=== PATIENT | female | born 1990 | race African-American/Black ===

== ENCOUNTER 2016-12-06 18:34 | Emergency (ER) | payer SELFPAY ==
--- NOTE | 2016-12-06 18:35 | NUR ---
no answer out in ER lobby
--- NOTE | 2016-12-06 18:43 | NUR ---
still no answer out in lobby
--- NOTE | 2016-12-06 18:43 | NUR ---
PATIENT LEFT WITHOUT BEING SEEN BY DR. Wiggins. NO FURTHER CARE PROVIDED FOR PATIENT.
== END 2016-12-06 18:43 | disposition left against medical advice (07) ==
LOC: MED 18:34
DX: Z53.21 Procedure and treatment not carried out due to patient leaving prior to being seen by health care provider (principal)

== ENCOUNTER 2016-12-09 09:45 | Emergency (ER) | payer SELFPAY ==
[~2016-12-09] VITALS: Ht 160 cm; Wt 95.0 kg
[2016-12-09 10:04] VITALS: BP 106/63
--- NOTE | 2016-12-09 10:10 | NUR ---
Blake valdovinos in [facility] - 12/09/16 at 1028 by [facility] PT AMBULATED TO BED 6.
--- NOTE | 2016-12-09 10:15 | NUR ---
PT AMBULATED TO BED 6.
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
[2016-12-09] MEDS ORDERED: ONDANSETRON 4 MG ODT PO ONE (10:45)
[2016-12-09] MEDS ORDERED: CYCLOBENZAPRINE 10 MG TAB PO ONE (10:45)
[2016-12-09] MEDS ORDERED: ACETAMINOPHEN EXTRA STRENGTH 500 MG TAB PO ONE (10:45)
[2016-12-09] MEDS ORDERED: traMADol 50 MG TAB PO ONE (10:45)
[2016-12-09] MEDS ORDERED: KETOROLAC 60 MG/2 ML VIAL IM ONE (10:45)
[2016-12-09 12:20] VITALS: BP 122/65
--- NOTE | 2016-12-09 12:20 | NUR ---
Patient discharged with v/s stable. Written and verbal after care instructions given and explained. Patient verbalized understanding. Ambulatory with steady gait. All questions addressed prior to discharge. Advised to follow up with PMD.
== END 2016-12-09 12:20 | disposition home or self-care (01) ==
LOC: MED 09:45
DX: S33.5XXA Sprain of ligaments of lumbar spine, initial encounter (principal); S09.90XA Unspecified injury of head, initial encounter; J06.9 Acute upper respiratory infection, unspecified; J45.909 Unspecified asthma, uncomplicated; Z98.890 Other specified postprocedural states; V89.2XXA Person injured in unspecified motor-vehicle accident, traffic, initial encounter; Y93.89 Activity, other specified; Y92.89 Other specified places as the place of occurrence of the external cause; Y99.8 Other external cause status
CPT/HCPCS: 96372; 99284; J1885; S0119

== ENCOUNTER 2018-02-05 14:24 | Emergency (ER) | payer MEDICARE ==
[~2018-02-05] VITALS: Ht 157.5 cm; Wt 79.8 kg
[2018-02-05 14:42] VITALS: BP 96/53
--- NOTE | 2018-02-05 14:46 | NUR ---
pt stable to wait in lobby, pt advised to inform staff for any chnages in conditon.
--- NOTE | 2018-02-05 15:25 | NUR ---
PATIENT TO BED 11 AT THIS TIME.
--- NOTE | 2018-02-05 15:30 | NUR ---
PATIENT PRESENTS TO ED WITH COMPLAINTS OF POSSIBLE WOUND INFECTION. PATIENT STATES SHE HAD GALLBLADDER SURGERY DONE HERE AND SHE BELIEVES HER WOUNDS ARE INFECTED. UPON INSPECTION WOUNDS APPEARED HEALED WITH NO PRESSENCE OF DRAINAGE. AROUND WOUNDS PATIENT DOES APPEAR TO HAVE A RASH FORMATION POSSIBLY A REACTION TO ADHESIVE USED ON DRESSINGS. DENIES N/V/D; SKIN IS PINK/WARM/DRY; AAOX4 WITH EVEN AND STEADY GAIT; PT DENIES ANY FEVER, CP, SOB, OR COUGH AT THIS TIME; PATIENT STATES PAIN OF 0/10 AT THIS TIME; VSS; PATIENT POSITIONED FOR COMFORT; HOB ELEVATED; BEDRAILS UP X1; BED DOWN. ER MD MADE AWARE OF PT STATUS.
[2018-02-05] MEDS ORDERED: hydrOXYzine HCL 25 MG TAB PO ONE (16:00)
[2018-02-05] MEDS ORDERED: diphenhydrAMINE 50 MG/ML VIAL IM ONE (16:00)
[2018-02-05] MEDS ORDERED: DEXAMETHASONE 10 MG/ML VIAL IM ONE (16:00)
--- NOTE | 2018-02-05 16:50 | NUR ---
Patient discharged with v/s stable. Written and verbal after care instructions given and explained. Patient alert, oriented and verbalized understanding of instructions. Ambulatory with steady gait. All questions addressed prior to discharge. ID band removed. Patient advised to follow up with PMD. Rx of ATARAX, KENALOG CREME given. Patient educated on indication of medication including possible reaction and side effects. Opportunity to ask questions provided and answered.
[2018-02-05 16:54] VITALS: BP 96/53
== END 2018-02-05 16:50 | disposition home or self-care (01) ==
LOC: MED 14:24
DX: Z48.01 Encounter for change or removal of surgical wound dressing (principal); L29.9 Pruritus, unspecified; J45.909 Unspecified asthma, uncomplicated; Z98.890 Other specified postprocedural states
CPT/HCPCS: 81002; 81025; 96372; 99284; J1100; J1200

== ENCOUNTER 2018-07-08 09:45 | Emergency (ER) | payer MEDICARE ==
[~2018-07-08] VITALS: Ht 157.5 cm; Wt 86.2 kg
--- NOTE | 2018-07-08 10:04 | NUR ---
GOWN PROVIDED TO PT TO CHANGE INTO.
[2018-07-08 10:07] VITALS: BP 102/59
--- NOTE | 2018-07-08 10:15 | NUR ---
28 YO F BIB SELF, AMBULATORY W/STEADY GATE. PER PATIENT SHE DID THE SPLITS YESTERDAY AND FEELS LIKE SHE PULLED MUSCLE. BEDRAILS UP X1. BED IN LOWER LOCKED POSITION. ER MD MADE AWARE OF PT STATUS. WILL CONTINUE TO MONITOR HX: CHOLECYSTECTOMY
--- NOTE | 2018-07-08 10:17 | NUR ---
ASKED PT TO CHANGE. PT STATES PAIN IS 10 OUT 10 IN RECTUM AND LEG AREA. PT STATES TO DOING THE SPLITS YESTERDAY AND HAS HAD PAIN EVER SINCE.
--- NOTE | 2018-07-08 11:07 | NUR ---
ER MD DR. RIDER AT BEDSIDE WITH FEMALE BUILDING CLEANER.
[2018-07-08] MEDS ORDERED: KETOROLAC 60 MG/2 ML VIAL IM ONE (11:15)
[2018-07-08 12:20] VITALS: BP 110/62
--- NOTE | 2018-07-08 12:20 | NUR ---
Patient discharged with v/s stable. Written and verbal after care instructions given and explained. Patient alert, oriented and verbalized understanding of instructions. Ambulatory with steady gait. All questions addressed prior to discharge. ID band removed. Patient advised to follow up with PMD. Rx of NAPROSYN 500MG, ANUSOL HC 25MG given. Patient educated on indication of medication including possible reaction and side effects. Opportunity to ask questions provided and answered.
== END 2018-07-08 12:20 | disposition home or self-care (01) ==
LOC: MED 09:45
DX: M54.32 Sciatica, left side (principal); K64.4 Residual hemorrhoidal skin tags; J45.909 Unspecified asthma, uncomplicated
CPT/HCPCS: 96372; 99283; J1885

== ENCOUNTER 2018-10-22 11:56 | Emergency (ER) | payer BC, MEDICARE ==
[~2018-10-22] VITALS: Ht 157.5 cm; Wt 84.4 kg
[2018-10-22 12:00] VITALS: BP 104/50
--- NOTE | 2018-10-22 12:15 | NUR ---
pt states, on chair in er # 01 room,a nail punctures/cut rt palm area last night-more than 12 hours ago.not utd on td.awaits er md evaluations/assessments.noted slight swelling/redness/pains
--- NOTE | 2018-10-22 12:25 | NUR ---
steffany singh at bedside for evaluations/assessments.jeff huff.awaits reevaluations.
--- NOTE | 2018-10-22 12:45 | NUR ---
tdap given im.pt tolerated procedures with no incidents.portable xrays in progress.awaits reevaluations.jeff huff.
--- NOTE | 2018-10-22 13:00 | NUR ---
Patient appears to be resting in bed. Vital Signs within normal limits. Respirations even and unlabored.
[2018-10-22] MEDS ORDERED: IBUPROFEN 600 MG TAB PO ONE (13:45)
--- NOTE | 2018-10-22 13:53 | NUR ---
steffany whitt at bedside for reevaluations.jeff huff.pt using own smartphone.awaits reevaluations.
--- NOTE | 2018-10-22 14:05 | NUR ---
pt tolerated procedures with no incidents.upon er md reevaluations pt d/c'ed with rx's,instructions and to follow up with pmd/clinic for checkup further evaluations.ambulates on her own and states she understands instructions and will comply,.return to nearest appropriate medical facility if conditions worsens/emergencies.jeff huff.
[2018-10-22 14:19] VITALS: BP 122/73
== END 2018-10-22 14:05 | disposition home or self-care (01) ==
LOC: MED 11:56
DX: M79.641 Pain in right hand (principal); J45.909 Unspecified asthma, uncomplicated
CPT/HCPCS: 73120; 90471; 90715; 99283; Q0092

== ENCOUNTER 2019-03-12 10:53 | Emergency (ER) | payer BC ==
[~2019-03-12] VITALS: Ht 157.5 cm; Wt 82.2 kg
[2019-03-12 10:57] VITALS: BP 116/74
--- NOTE | 2019-03-12 11:16 | NUR ---
28F C/O PRURITIC RASH BEHIND BOTH KNEECAPS THAT SEEM TO BE SPREADING X2 DAYS, DIFFICULTY BREATHING X1 WEEK, AND LOWER BACK PAIN X4 WEEK. PT STATES SHE RAN OUT OF ASTHMA MEDICATIONS, HAS BEEN HAVING DRY COUGH. LBP STARTED 4 DAYS AGO, AFTER PATIENT WAS PLAYING WITH HER KIDS AND "PULLED A MUSCLE" IN THE BACK. DENIES FEVER, CHILLS, N/V/D. MEDHX:ASTHMA RX:VITAMINS
--- NOTE | 2019-03-12 11:22 | NUR ---
DR. HORTON EVALUATING PATIENT AT BEDSIDE
[2019-03-12] MEDS ORDERED: KETOROLAC 60 MG/2 ML VIAL IM ONE (11:30)
[2019-03-12 11:45] VITALS: BP 116/74
--- NOTE | 2019-03-12 11:45 | NUR ---
Patient discharged with v/s stable. Written and verbal after care instructions given and explained. Patient alert, oriented and verbalized understanding of instructions. Ambulatory with steady gait. All questions addressed prior to discharge. ID band removed. Patient advised to follow up with PMD. Rx of MOTRIN, PREDNISONE, ALBUTEROL, AND BENADRYL given. Patient educated on indication of medication including possible reaction and side effects. Opportunity to ask questions provided and answered.
== END 2019-03-12 11:45 | disposition home or self-care (01) ==
LOC: MED 10:53
DX: R21 Rash and other nonspecific skin eruption (principal); M54.9 Dorsalgia, unspecified; J45.909 Unspecified asthma, uncomplicated; Z90.49 Acquired absence of other specified parts of digestive tract; Z98.890 Other specified postprocedural states
CPT/HCPCS: 81002; 81025; 96372; 99283; J1885

== ENCOUNTER 2019-05-03 08:43 | Emergency (ER) | payer BC ==
[~2019-05-03] VITALS: Ht 157.5 cm; Wt 79.4 kg
[2019-05-03 08:51] VITALS: BP 107/68
--- NOTE | 2019-05-03 09:05 | NUR ---
28F C/O EPIGASTRIC PAIN 8/10 ACCOMPANIED BY N/V X 3 DAYS AND A PAINFUL "BUMP" NEAR HER RECTUM X 1 WEEK. HX HEMORRHOIDS, HAS NOT PAID ATTENTION IF ANY BLOOD IN STOOL. PT STATES SHE IS LACTOSE INTOLERANT AND ATE ICE CREAM YESTERDAY SO SHE IS NOT SURE IF THATS WHATS CAUSING THE ABD PAIN. PAIN IS CONSTANT AND "ANNOYING". STATES CONSTIPATION YESTERDAY AND SUBJECTIVE FEVER THIS MORNING. NORMOACTIVE BS. MILD TENDERNESS TO EPIGASTRIUM. NAD. HX: ASTHMA RX: ALBURETOL
--- NOTE | 2019-05-03 09:41 | NUR ---
BLANE BEAN AT BEDSIDE FOR RECTAL EXAM.
[2019-05-03] MEDS ORDERED: KETOROLAC 60 MG/2 ML VIAL IM ONE (11:05)
[2019-05-03 11:16] VITALS: BP 107/68
--- NOTE | 2019-05-03 11:16 | NUR ---
Patient discharged with v/s stable. Written and verbal after care instructions given and explained. Patient alert, oriented and verbalized understanding of instructions. Ambulatory with steady gait. All questions addressed prior to discharge. ID band removed. Patient advised to follow up with PMD. Rx of KEFLEX, BACTRIM, COLACE, HYDROCORTISONE RECTAL SUPPOSITORY given. Patient educated on indication of medication including possible reaction and side effects. Opportunity to ask questions provided and answered.
== END 2019-05-03 11:16 | disposition home or self-care (01) ==
LOC: MED 08:43
DX: K64.9 Unspecified hemorrhoids (principal); J45.909 Unspecified asthma, uncomplicated; K59.00 Constipation, unspecified
CPT/HCPCS: 74018; 96372; 99283; J1885

== ENCOUNTER 2019-07-05 13:51 | Emergency (ER) | payer MEDICAID ==
[~2019-07-05] VITALS: Ht 157.5 cm; Wt 74.8 kg
[2019-07-05 14:43] VITALS: BP 114/62
--- NOTE | 2019-07-05 15:22 | NUR ---
Patient discharged with v/s stable. Written and verbal after care instructions given and explained. Patient alert, oriented and verbalized understanding of instructions. Ambulatory with steady gait. All questions addressed prior to discharge. ID band removed. Patient advised to follow up with PMD. Rx of ALBUTEROL, PREDNISONE, PROMETHAZINE, IBUPROFEN given. Patient educated on indication of medication including possible reaction and side effects. Opportunity to ask questions provided and answered.
--- NOTE | 2019-07-05 15:22 | NUR ---
29 Y/O F WITH C/O COUGH, FEVER, CONGESTION. PT TOOK COLD MEDICINE AT HOME, HASN'T RELIEVED SYMPMS.
[2019-07-05 15:28] VITALS: BP 114/72
== END 2019-07-05 15:22 | disposition home or self-care (01) ==
LOC: MED 13:51
DX: J06.9 Acute upper respiratory infection, unspecified (principal); J45.909 Unspecified asthma, uncomplicated
CPT/HCPCS: 99283

== ENCOUNTER 2019-08-05 10:30 | Emergency (ER) | payer MEDICAID, BC ==
[~2019-08-05] VITALS: Ht 165.1 cm; Wt 77.1 kg
[2019-08-05 10:38] VITALS: BP 115/57
--- NOTE | 2019-08-05 10:49 | NUR ---
PT PLACED IN BED 2.
--- NOTE | 2019-08-05 10:50 | NUR ---
ABSCESS TO RECTAL AREA X 1 MONTH, GIVEN ABX, NO RELIEF. LOWER BACK X 3 WEEKS DENIES INJURY. GENERALIZED ABD PAIN X 2 DAYS.
[2019-08-05] MEDS ORDERED: LIDOCAINE MPF 1% 5 ML ONE (12:45)
[2019-08-05] MEDS ORDERED: cefTRIAXone 1,000 MG VIAL ONE (12:45)
[2019-08-05] MEDS: cefTRIAXone 1,000 MG in LIDOCAINE MPF 1% 2.1 ML IM ONE (12:52)
[2019-08-05] MEDS: AZITHROMYCIN 250 MG TAB PO ONE (12:55)
[2019-08-05 13:39] VITALS: BP 115/57
[2019-08-07 06:07] LABS: CHLAMYDIA TRACHOMATIS AMP DNA Negative (Negative)
== END 2019-08-05 13:39 | disposition home or self-care (01) ==
LOC: MED 10:30
DX: N76.0 Acute vaginitis (principal); J45.909 Unspecified asthma, uncomplicated
CPT/HCPCS: 36415; 87210; 87491; 96372; 99283; J0696; J2001

== ENCOUNTER 2019-10-18 01:21 | Emergency (ER) | payer BC, MEDICAID ==
[~2019-10-18] VITALS: Ht 154.9 cm; Wt 78.0 kg
[2019-10-18 01:25] VITALS: BP 130/73
--- NOTE | 2019-10-18 01:29 | NUR ---
PT AMBULATED TO ER BED3
--- NOTE | 2019-10-18 01:36 | NUR ---
29 YO FEMALE CO ADULT ASTHMA SINCE TODAY. PT HAS NO WHEEZING. O2 100% ON ROOM AIR.
[2019-10-18] MEDS ORDERED: KETOROLAC 30 MG/ML VIAL IM ONE (01:40)
[2019-10-18 01:59] VITALS: BP 128/72
--- NOTE | 2019-10-18 01:59 | NUR ---
Patient discharged with v/s stable. Written and verbal after care instructions given and explained. Patient alert, oriented and verbalized understanding of instructions. Ambulatory with by parent. All questions addressed prior to discharge. ID band removed. Patient advised to follow up with PMD. Rx of ALBUTEROL, IBUPROFEN given. Patient educated on indication of medication including possible reaction and side effects. Opportunity to ask questions provided and answered.
== END 2019-10-18 01:56 | disposition home or self-care (01) ==
LOC: MED 01:21
DX: S39.012A Strain of muscle, fascia and tendon of lower back, initial encounter (principal); J45.909 Unspecified asthma, uncomplicated; R51 Headache; W19.XXXA Unspecified fall, initial encounter; Y93.89 Activity, other specified; Y92.89 Other specified places as the place of occurrence of the external cause; Y99.8 Other external cause status
CPT/HCPCS: 96372; 99283; J1885

== ENCOUNTER 2019-11-17 21:48 | Emergency (ER) | payer BC ==
[~2019-11-17] VITALS: Ht 157.5 cm; Wt 81.6 kg
--- NOTE | 2019-11-17 21:48 | NUR ---
PT CARRIED TO ER BED 05 WITH ASSISTANCE FROM DB
[2019-11-17 21:52] VITALS: BP 155/91
[2019-11-17] MEDS ORDERED: NACL 0.9% 500 ML IV ONE (22:10)
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
[2019-11-17] MEDS ORDERED: MAG SULF 2000 MG/WATER PREMIX 50 ML IV ONE (22:20)
[2019-11-17] MEDS ORDERED: PANTOPRAZOLE 40 MG INJ VIAL IVP ONE (22:20)
[2019-11-17] MEDS ORDERED: CYANOCOBALAMIN 1000 MCG/ML VIAL IM ONE (22:35)
--- NOTE | 2019-11-17 23:21 | NUR ---
PT ABLE TO SWALLOW WATER WITHOUT DIFFICULTY. DR. DE LA CRUZ AWARE.
[2019-11-17] MEDS ORDERED: KETOROLAC 30 MG/ML VIAL IVP ONE (23:30)
[2019-11-17 23:52] VITALS: BP 113/63
--- NOTE | 2019-11-17 23:54 | NUR ---
Patient discharged with v/s stable. Written and verbal after care instructions given and explained. Patient alert, oriented and verbalized understanding of instructions. Ambulatory with steady gait. All questions addressed prior to discharge. ID band removed. Patient advised to follow up with PMD. Rx prtonix and tylenol given. Patient educated on indication of medication including possible reaction and side effects. Opportunity to ask questions provided and answered. Pt walk on steady gait. No c/o CP , SOB, dizziness or any difficulty in swallowing. Pt d/c.
--- NOTE | 2019-11-18 15:39 | NUR ---
LATE ENTRY- IV MAGNESIUM SULFATE DISCONTINUED AT 2354.
== END 2019-11-17 23:54 | disposition home or self-care (01) ==
LOC: MED 21:48
DX: T17.928A Food in respiratory tract, part unspecified causing other injury, initial encounter (principal); R13.10 Dysphagia, unspecified; J45.909 Unspecified asthma, uncomplicated; X58.XXXA Exposure to other specified factors, initial encounter; Y93.89 Activity, other specified; Y92.89 Other specified places as the place of occurrence of the external cause; Y99.8 Other external cause status
CPT/HCPCS: 96365; 96375; 99284; C9113; J1885; J3420; J3475; J7030

== ENCOUNTER 2019-12-23 00:48 | Emergency (ER) | payer MEDICAID, BC ==
[~2019-12-23] VITALS: Ht 157.5 cm; Wt 79.8 kg
[2019-12-23 00:59] VITALS: BP 103/69
--- NOTE | 2019-12-23 01:05 | NUR ---
PT AMBULATED TO BED 7 WITH STEADY GAIT
[2019-12-23] MEDS ORDERED: DICYCLOMINE HCL LIQUID 20 MG, ALUMINUM HYD/MAG/SIMETHICONE 30 ML, LIDOCAINE VISCOUS 2% ... PO ONE ×3 (01:10)
[2019-12-23] MEDS ORDERED: PANTOPRAZOLE 40 MG TABEC PO ONE (01:10)
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
[2019-12-23] MEDS ORDERED: LIDOCAINE VISCOUS 2% 20 ML UDC ONE (01:16)
[2019-12-23] MEDS ORDERED: DICYCLOMINE HCL LIQUID 10 MG/5 ML UDC ONE (01:17)
[2019-12-23] MEDS ORDERED: ALUMINUM HYD/MAG/SIMETHICONE 30 ML UDC ONE (01:17)
--- NOTE | 2019-12-23 01:54 | NUR ---
PT REPORTS DECREASE IN PAIN, NOW 6/10 POST MEDICATION
[2019-12-23 02:00] VITALS: BP 103/69
--- NOTE | 2019-12-23 02:00 | NUR ---
Patient discharged with v/s stable. Written and verbal after care instructions given and explained. Patient alert, oriented and verbalized understanding of instructions. Ambulatory with steady gait. All questions addressed prior to discharge. ID band removed. Patient advised to follow up with PMD. Rx of PROTONIX given. Patient educated on indication of medication including possible reaction and side effects. Opportunity to ask questions provided and answered.
== END 2019-12-23 02:00 | disposition home or self-care (01) ==
LOC: MED 00:48
DX: K21.9 Gastro-esophageal reflux disease without esophagitis (principal); J45.909 Unspecified asthma, uncomplicated; Z98.890 Other specified postprocedural states
CPT/HCPCS: 99283

== ENCOUNTER 2020-01-10 01:12 | Emergency (ER) | payer BC, MEDICAID ==
[~2020-01-10] VITALS: Ht 154.9 cm; Wt 77.1 kg
[2020-01-10 01:26] VITALS: BP 113/70
--- NOTE | 2020-01-10 01:40 | NUR ---
PT TAKEN TO BED 11
[2020-01-10] MEDS ORDERED: DICYCLOMINE HCL LIQUID 20 MG, ALUMINUM HYD/MAG/SIMETHICONE 30 ML, LIDOCAINE VISCOUS 2% ... PO ONE ×3 (01:45)
[2020-01-10] MEDS ORDERED: DICYCLOMINE HCL LIQUID 10 MG/5 ML UDC ONE (01:48)
[2020-01-10] MEDS ORDERED: ALUMINUM HYD/MAG/SIMETHICONE 30 ML UDC ONE (01:48)
[2020-01-10] MEDS ORDERED: LIDOCAINE VISCOUS 2% 20 ML UDC ONE (01:48)
--- NOTE | 2020-01-10 01:48 | NUR ---
Dr. Herndon examining patient.
--- NOTE | 2020-01-10 01:56 | NUR ---
29F PT PRESENTS TO ED WITH C/O LLQ, RLQ ABDOMINAL PAIN THAT IS NON RADIATING. PT REPORTS INCREASED ACIDITY IN STOMACH AND REPORTS APPETITE CHANGES. PT NOT ABLE TO HOLD DOWN FOOD WITHOUT VOMITING. ERMD MADE AWARE. BOWEL SOUNDS NORMOACTIVE. ABDOMEN SOFT AND NONTENDER. DENIES HEMATOCHEZIA. DENIES DYSURIA. PMHX: GI SURGERY RX: DENIES NKA
[2020-01-10 01:58] VITALS: BP 113/70
--- NOTE | 2020-01-10 02:01 | NUR ---
PT MEDICATED WITH GI COCKTAIL
--- NOTE | 2020-01-10 02:11 | NUR ---
Patient discharged with v/s stable. Written and verbal after care instructions given and explained. Patient alert, oriented and verbalized understanding of instructions. Ambulatory with steady gait. All questions addressed prior to discharge. ID band removed. Patient advised to follow up with PMD. Rx of MOTRIN AND PRILOSEC given. Patient educated on indication of medication including possible reaction and side effects. Opportunity to ask questions provided and answered.
== END 2020-01-10 02:11 | disposition home or self-care (01) ==
LOC: MED 01:12
DX: K21.9 Gastro-esophageal reflux disease without esophagitis (principal); J45.909 Unspecified asthma, uncomplicated; Z90.49 Acquired absence of other specified parts of digestive tract
CPT/HCPCS: 81002; 81025; 99283

== ENCOUNTER 2020-03-19 01:16 | Emergency (ER) | payer BC ==
[~2020-03-19] VITALS: Ht 154.9 cm; Wt 79.4 kg
[2020-03-19 01:45] VITALS: BP 106/65
--- NOTE | 2020-03-19 01:49 | NUR ---
PT TO CHC WITH STEADY GAIT.
--- NOTE | 2020-03-19 01:57 | NUR ---
Dr. Lazar examining patient.
[2020-03-19] MEDS ORDERED: DICYCLOMINE HCL LIQUID 10 MG/5 ML UDC PO ONE (02:05)
[2020-03-19] MEDS ORDERED: LIDOCAINE VISCOUS 2% 20 ML UDC PO ONE (02:05)
[2020-03-19] MEDS ORDERED: ALUMINUM HYD/MAG/SIMETHICONE 30 ML UDC PO ONE (02:05)
[2020-03-19] MEDS ORDERED: PANTOPRAZOLE 40 MG TABEC PO ONE (02:05)
[2020-03-19 02:35] VITALS: BP 106/65
--- NOTE | 2020-03-19 02:38 | NUR ---
29 Y/O F PRESENTS TO ED C/O ACID REFLUX. PT ALSO C/O PAIN 03/06. PT STATES SHE HAS A HISTORY OF GERD. AIRWAY INTACT, RR EVEN AND UNLABORED. MHX: ASTHMA, GERD NKA
== END 2020-03-19 02:35 | disposition home or self-care (01) ==
LOC: MED 01:16
DX: R10.13 Epigastric pain (principal); R07.0 Pain in throat; J45.909 Unspecified asthma, uncomplicated; K21.9 Gastro-esophageal reflux disease without esophagitis
CPT/HCPCS: 99284

== ENCOUNTER 2020-04-05 17:49 | Emergency (ER) | payer BC ==
[~2020-04-05] VITALS: Ht 156.2 cm; Wt 78.5 kg
[2020-04-05 17:54] VITALS: BP 112/65
--- NOTE | 2020-04-05 18:10 | NUR ---
AMB TO [facility]
[2020-04-05] MEDS ORDERED: ALUMINUM HYD/MAG/SIMETHICONE 30 ML UDC PO ONE (18:20)
[2020-04-05] MEDS ORDERED: LIDOCAINE VISCOUS 2% 20 ML UDC PO ONE (18:20)
[2020-04-05] MEDS ORDERED: SUCRALFATE 1 GM TAB PO SCH (18:20)
--- NOTE | 2020-04-05 19:16 | NUR ---
29 year old female coming in for c/o gastric reflux x 4 months. states she is in and out of hospital with no relief of reflux management. +n/v. denies any other s/sx. denies any injury or trauma. pmhx: gerd nka
--- NOTE | 2020-04-05 19:30 | NUR ---
Patient discharged with v/s stable. Written and verbal after care instructions given and explained. Patient alert, oriented and verbalized understanding of instructions. Ambulatory with steady gait. All questions addressed prior to discharge. ID band removed. Patient advised to follow up with PMD. Rx of omeprazole and pepcid given. Patient educated on indication of medication including possible reaction and side effects. Opportunity to ask questions provided and answered.
== END 2020-04-05 19:31 | disposition home or self-care (01) ==
LOC: MED 17:49
DX: K21.9 Gastro-esophageal reflux disease without esophagitis (principal); K20.9 Esophagitis, unspecified; J45.909 Unspecified asthma, uncomplicated
CPT/HCPCS: 99283

== ENCOUNTER 2020-04-12 20:33 | Emergency (ER) | payer BC ==
[~2020-04-12] VITALS: Ht 152.4 cm; Wt 79.4 kg
[2020-04-12 20:40] VITALS: BP 133/88
--- NOTE | 2020-04-12 20:44 | NUR ---
Dr. Heath made aware of situation. Okay to wait in lobby.
--- NOTE | 2020-04-12 21:51 | NUR ---
PATIENT LEFT WITHOUT BEING SEEN BY DR. Heath. NO FURTHER CARE PROVIDED FOR PATIENT.
== END 2020-04-12 21:51 | disposition left against medical advice (07) ==
LOC: MED 20:33
DX: J45.909 Unspecified asthma, uncomplicated (principal); K21.9 Gastro-esophageal reflux disease without esophagitis; Z53.21 Procedure and treatment not carried out due to patient leaving prior to being seen by health care provider

== ENCOUNTER 2020-06-07 17:42 | Emergency (ER) | payer BC ==
[~2020-06-07] VITALS: Ht 154.9 cm; Wt 79.2 kg
[2020-06-07 18:04] VITALS: BP 144/64
--- NOTE | 2020-06-07 18:10 | NUR ---
PT AMB TO BED 7
--- NOTE | 2020-06-07 18:30 | NUR ---
PATIENT PRESENTS TO ED WITH C/O EPIGASTRIC PAIN, H/O GERD . PT STATES I RAN OUT OF MY OMEPRAZOLE . DENIES N/V/D; SKIN IS PINK/WARM/DRY; AAOX4 WITH EVEN AND STEADY GAIT; LUNGS CLEAR BL; HR EVEN AND REGULAR; PT DENIES ANY FEVER, CP, SOB, OR COUGH AT THIS TIME; PATIENT STATES PAIN OF 0/10 AT THIS TIME; VSS; PATIENT POSITIONED FOR COMFORT; HOB ELEVATED; BEDRAILS UP X2; BED DOWN. ER MD MADE AWARE OF PT STATUS.
[2020-06-07] MEDS ORDERED: KETOROLAC 30 MG/ML VIAL IM ONE (18:45)
--- NOTE | 2020-06-07 19:13 | NUR ---
RECIVED REPORT FROM NATA MCNEILL. TRANSFER OF CARE.
[2020-06-07 19:35] VITALS: BP 144/64
--- NOTE | 2020-06-07 19:35 | NUR ---
Patient discharged with v/s stable. Written and verbal after care instructions given and explained. Patient alert, oriented and verbalized understanding of instructions. Ambulatory with steady gait. All questions addressed prior to discharge. ID band removed. Patient advised to follow up with PMD. Rx of INSPIRATION ELITE NEBULIZER, FAMOTIDINE, PREDNISONE, ALBUTEROL, IPRATROPIUM given. Patient educated on indication of medication including possible reaction and side effects. Opportunity to ask questions provided and answered.
== END 2020-06-07 19:35 | disposition home or self-care (01) ==
LOC: MED 17:42
DX: J45.909 Unspecified asthma, uncomplicated (principal); M54.5 Low back pain; K21.9 Gastro-esophageal reflux disease without esophagitis; Z90.49 Acquired absence of other specified parts of digestive tract; Z98.890 Other specified postprocedural states
CPT/HCPCS: 81002; 81025; 96372; 99283; J1885

== ENCOUNTER 2020-06-25 12:20 | Emergency (ER) | payer BC ==
[~2020-06-25] VITALS: Ht 157.5 cm; Wt 80.8 kg
[2020-06-25 12:31] VITALS: BP 124/66
--- NOTE | 2020-06-25 12:39 | NUR ---
PATIENT AMBULATED TO BED 12.
--- NOTE | 2020-06-25 12:52 | NUR ---
C/O NONRADIATING CHEST PAIN, SHARP, STABBING /10 CONSTANT. DENIES N/V/D, HR EVEN AND REGULAR. DENIES COUGH, SOB, RESPIRATORY RATE EVEN AND UNLABORED, SKIN WARM, DRY AND INTACT. VSS. PATIENT PLACED ON BEDSIDE MONITOR, BED IN LOWEST POSITION, SIDE RAIL UP X1.
[2020-06-25] MEDS ORDERED: diazePAM 5 MG TAB PO ONE (13:10)
[2020-06-25] MEDS ORDERED: KETOROLAC 30 MG/ML VIAL IM ONE (13:10)
[2020-06-25 14:56] VITALS: BP 101/65
--- NOTE | 2020-06-25 14:56 | NUR ---
Patient discharged with v/s stable. Written and verbal after care instructions given and explained. Patient alert, oriented and verbalized understanding of instructions. Ambulatory with steady gait. All questions addressed prior to discharge. ID band removed. Patient advised to follow up with PMD. Rx of NAPROSYN AND NORCO given. Patient educated on indication of medication including possible reaction and side effects. Opportunity to ask questions provided and answered.
== END 2020-06-25 14:56 | disposition home or self-care (01) ==
LOC: MED 12:20
DX: R07.89 Other chest pain (principal); J45.909 Unspecified asthma, uncomplicated; K21.9 Gastro-esophageal reflux disease without esophagitis
CPT/HCPCS: 71045; 81002; 81025; 96372; 99283; J1885; 93005

== ENCOUNTER 2020-11-16 00:25 | Emergency (ER) | payer BC ==
[~2020-11-16] VITALS: Ht 170.2 cm; Wt 79.8 kg
[2020-11-16 00:31] VITALS: BP 119/67
--- NOTE | 2020-11-16 00:35 | NUR ---
PT TAKEN TO BED #5
--- NOTE | 2020-11-16 00:39 | NUR ---
Dr. Fernandes examining patient.
--- NOTE | 2020-11-16 00:45 | NUR ---
30 Y/O F CAME TO THE ED WITH STABBING CHEST PAIN OF 04/06. PT STATES THAT "SHE WAS LAYING DOWN" WHEN SHE SUDDENLY FELT TIGHTNESS, STABBING PAIN AROUND HER CHEST; DOES NOT RADIATE TO ANYWHERE ELSE. DENIES N/V/D; SKIN IS PINK/WARM/DRY; AAOX4 WITH EVEN AND STEADY GAIT; LUNGS CLEAR BL; HR EVEN AND REGULAR; PT DENIES ANY FEVER, CP, SOB, OR COUGH AT THIS TIME; ; PATIENT POSITIONED FOR COMFORT; HOB ELEVATED; BEDRAILS UP X2; BED DOWN. ER MD MADE AWARE OF PT STATUS. PMH: ASTHMA, GERD, ANXIETY NKA
[2020-11-16] MEDS ORDERED: KETOROLAC 30 MG/ML VIAL IM ONE (00:55)
[2020-11-16 00:56] VITALS: BP 119/67
--- NOTE | 2020-11-16 00:56 | NUR ---
EKG PERFORMED AT BEDSIDE. EKG READS SINUS RHYTHM @ 98
--- NOTE | 2020-11-16 01:24 | NUR ---
pt d/c with VSS. d/c education given. opportunity to ask questions given and answered. no rx given.
[2020-11-20] MEDS ORDERED: AUG875 PO (08:53)
[2020-11-20] MEDS ORDERED: IBUP-2213 PO (08:53)
== END 2020-11-16 00:35 | disposition home or self-care (01) ==
LOC: MED 00:25
DX: R07.89 Other chest pain (principal); J45.909 Unspecified asthma, uncomplicated; K21.9 Gastro-esophageal reflux disease without esophagitis
CPT/HCPCS: 81025; 93005; 96372; 99283; J1885

== ENCOUNTER 2021-01-13 14:43 | Emergency (ER) | payer BC, SELFPAY ==
[~2021-01-13] VITALS: Ht 157.5 cm; Wt 81.6 kg
[~2021-01-13 14:43] MED LIST: AUG875 PO; IBUP-2213 PO
[2021-01-13 14:49] VITALS: BP 95/57
[2021-01-13] MEDS ORDERED: methocarbamoL 500 MG TAB PO ONE (14:55)
[2021-01-13] MEDS ORDERED: KETOROLAC 30 MG/ML VIAL IM ONE (14:55)
[2021-01-13] MEDS ORDERED: NAPR-54 PO (15:40)
[2021-01-13] MEDS ORDERED: LIDO1ADH47 TP (15:40)
[2021-01-13] MEDS ORDERED: METH750T5 PO (15:40)
[2021-01-13 16:28] VITALS: BP 95/57
== END 2021-01-13 16:22 | disposition home or self-care (01) ==
LOC: MED 14:43
DX: S13.4XXA Sprain of ligaments of cervical spine, initial encounter (principal); M54.2 Cervicalgia; J45.909 Unspecified asthma, uncomplicated; K21.9 Gastro-esophageal reflux disease without esophagitis; Z79.899 Other long term (current) drug therapy; V98.8XXA Other specified transport accidents, initial encounter; Y93.89 Activity, other specified; Y92.89 Other specified places as the place of occurrence of the external cause; Y99.8 Other external cause status
CPT/HCPCS: 71045; 72050; 81002; 81025; 96372; 99284; J1885

== ENCOUNTER 2021-03-07 13:02 | Emergency (ER) | payer BC ==
[~2021-03-07] VITALS: Ht 157.5 cm; Wt 90.7 kg
[~2021-03-07 13:02] MED LIST changes: +LIDO1ADH47 TP; +METH750T5 PO; +NAPR-54 PO
[2021-03-07 13:08] VITALS: BP 112/76
[2021-03-07] MEDS ORDERED: FAMOTIDINE 20 MG TAB PO ONE (13:20)
[2021-03-07] MEDS ORDERED: ALUMINUM HYD/MAG/SIMETHICONE 30 ML UDC PO ONE (13:20)
--- NOTE | 2021-03-07 13:35 | NUR ---
EMT PERFORMING EKG IN TRIAGE
--- NOTE | 2021-03-07 13:40 | NUR ---
30 Y/O FEMALE C/O MID CHEST PAIN THAT SHE DESCRIBES BURNING/TIGHTNESS. PT STATES IT STARTED AFTER EATING PIZZA AND DRINKING ALCOHOL LAST NIGHT. PT STATED IT FELT LIKE IT WAS HARD TO BREATH EARLIER, BUT DENIES DIFFICULTY NOW, NO SIGNS OF DISTRESS. SPO2 100% ON RA. PT DENIES N/V/ SOB. PT A/O X4 WITH EVEN AND UNLABORED RESPIRATIONS. PMH: ASTHMA, GERD, C SECTION, GALL BLADDER REMOVAL NKDA
--- NOTE | 2021-03-07 14:04 | NUR ---
7048 LWBS- PT CALLED AND STATED SHE HAD TO LEAVE WITHOUT BEING SEEN
== END 2021-03-07 14:04 | disposition left against medical advice (07) ==
LOC: MED 13:02
DX: R06.02 Shortness of breath (principal); Z53.21 Procedure and treatment not carried out due to patient leaving prior to being seen by health care provider
CPT/HCPCS: 93005

== ENCOUNTER 2021-04-03 18:49 | Emergency (ER) | payer BC ==
[~2021-04-03] VITALS: Ht 157.5 cm; Wt 86.2 kg
[2021-04-03 18:55] VITALS: BP 119/67
--- NOTE | 2021-04-03 21:29 | NUR ---
PATIENT ELOPED FROM FACILITY. DISCHARGE INSTRUCTIONS NOT GIVEN TO PATIENT. DR. GALAVIZ NOTIFIED.
== END 2021-04-03 21:29 | disposition left against medical advice (07) ==
LOC: MED 18:49
DX: R10.9 Unspecified abdominal pain (principal); R42 Dizziness and giddiness; R51.9 Headache, unspecified; R06.02 Shortness of breath; F41.9 Anxiety disorder, unspecified; D64.9 Anemia, unspecified; J45.909 Unspecified asthma, uncomplicated; K21.9 Gastro-esophageal reflux disease without esophagitis; Z79.899 Other long term (current) drug therapy
CPT/HCPCS: 99281

== ENCOUNTER 2021-07-16 10:11 | Emergency (ER) | payer BC ==
[~2021-07-16] VITALS: Ht 157.5 cm; Wt 104.9 kg
[2021-07-16 10:45] VITALS: BP 129/74
[2021-07-16] MEDS ORDERED: PRON INH (10:56)
[2021-07-16] MEDS ORDERED: OMEP20EC11 PO (10:56)
[2021-07-16 12:10] LABS: BASOPHILS % (AUTO) 0.7 % (0.0-2.0); EOSINOPHILS # (AUTO) 0.1 K/uL (0-0.4); HEMATOCRIT 35.5 % (36-48); HEMOGLOBIN 11.7 g/dL (12.0-16.0); LYMPHOCYTES % (AUTO) 30.6 % (20.5-51.1); MEAN CORPUSCULAR HEMOGLOBIN 25 pg (27-31); MEAN CORPUSCULAR HGB CONC 33 g/dL (33-37); MEAN CORPUSCULAR VOLUME 75.7 fL (80-94); MONOCYTES # (AUTO) 0.3 K/uL (0.8-1.0); MONOCYTES % (AUTO) 8.5 % (1.7-9.3); NEUTROPHILS % (AUTO) 57.2 % (42.2-75.2); PLATELET COUNT (AUTO) 330 K/uL (140-450); RED BLOOD CELL COUNT(AUTO) 4.69 MIL/uL (4.20-5.40); RED CELL DISTRIBUTION WIDTH 16.7 % (11.6-13.7); WHITE BLOOD COUNT (AUTO) 3.4 K/uL (4.8-10.8)
[2021-07-16 12:29] LABS: ALBUMIN 3.5 g/dL (3.4-5.0); BILIRUBIN,DIRECT 0.1 mg/dL (0.0-0.3); TOTAL BILIRUBIN 0.1 mg/dL (0.0-1.0)
[2021-07-16 12:39] LABS: ANION GAP 14.9 (8-16); CARBON DIOXIDE 24.1 mmol/L (21-32); CREATININE 0.9 mg/dL (0.6-1.3)
[2021-07-16] MEDS: ACETAMINOPHEN EXTRA STRENGTH 500 MG TAB PO ONE (13:42)
[2021-07-16] MEDS: IBUPROFEN 400 MG TAB PO ONE (13:42)
[2021-07-16] MEDS: ONDANSETRON 4 MG ODT PO ONE (13:43)
[2021-07-16 13:51] VITALS: BP 129/80
== END 2021-07-16 13:51 | disposition home or self-care (01) ==
LOC: MED 10:11
DX: D64.9 Anemia, unspecified (principal); R42 Dizziness and giddiness; J45.909 Unspecified asthma, uncomplicated; K21.9 Gastro-esophageal reflux disease without esophagitis
CPT/HCPCS: 36415; 71045; 80048; 80076; 81002; 81025; 83690; 84484; 85025; 93005; 99285; Q0092; Q0162

== ENCOUNTER 2021-11-19 12:06 | Emergency (ER) | payer BC ==
[~2021-11-19] VITALS: Ht 154.9 cm; Wt 106.6 kg
[~2021-11-19 12:06] MED LIST changes: -AUG875 PO; -IBUP-2213 PO; -LIDO1ADH47 TP; -METH750T5 PO; -NAPR-54 PO; +OMEP20EC11 PO; +PRON INH
[2021-11-19 12:13] VITALS: BP 119/77
[2021-11-19 13:16] LABS: APPEARANCE,URINE SL CLOUDY (CLEAR); BILIRUBIN,URINE 1+ (NEGATIVE); BLOOD, URINE 3+ (NEGATIVE); COLOR,URINE ORANGE (YELLOW); LEUKOCYTE ESTERASE ,URINE NEGATIVE (NEGATIVE); NITRITE, URINE NEGATIVE (NEGATIVE); UGLUCOSE NEGATIVE (NEGATIVE)
[2021-11-19 13:34] LABS: RBC,URINE 50-80 /HPF (0-5)
[2021-11-19 13:37] LABS: CALCIUM OXALATE CRYSTALS,UR None Seen /HPF (None Seen); COARSE GRANULAR CASTS,URINE None Seen /LPF (None Seen); FINE GRANULAR CASTS,URINE None Seen /LPF (None Seen); HYALINE CASTS, URINE None Seen /LPF (None Seen); OTHER CASTS, URINE None Seen /LPF (None Seen); OTHER CRYSTALS,URINE None Seen /HPF (None Seen); RED BLOOD CELL CASTS,URINE None Seen /LPF (None Seen); TRICHOMONAS,URINE None Seen /HPF (None Seen); TRIPLE PHOSPHATE CRYSTAL,UR None Seen /HPF (None Seen); URIC ACID CRYSTALS,URINE None Seen /HPF (None Seen); URINE AMORPHOUS URATE None Seen /HPF (None Seen); WAXY CASTS,URINE None Seen /LPF (None Seen); YEAST,URINE None Seen /HPF (None Seen)
[2021-11-19 13:40] LABS: BASOPHILS % (AUTO) 0.9 % (0.0-2.0); EOSINOPHILS # (AUTO) 0.3 K/uL (0-0.4); EOSINOPHILS % (AUTO) 6.1 % (0.0-4.0); HEMATOCRIT 33.8 % (36-48); HEMOGLOBIN 11.1 g/dL (12.0-16.0); LYMPHOCYTES # (AUTO) 1.4 K/uL (2.5-16.5); LYMPHOCYTES % (AUTO) 33.6 % (20.5-51.1); MEAN CORPUSCULAR HEMOGLOBIN 25 pg (27-31); MEAN CORPUSCULAR HGB CONC 33 g/dL (33-37); MEAN CORPUSCULAR VOLUME 75.6 fL (80-94); MONOCYTES # (AUTO) 0.4 K/uL (0.8-1.0); MONOCYTES % (AUTO) 10.1 % (1.7-9.3); NEUTROPHILS # (AUTO) 2.1 K/uL (1.8-7.7); NEUTROPHILS % (AUTO) 49.3 % (42.2-75.2); PLATELET COUNT (AUTO) 278 K/uL (140-450); RED BLOOD CELL COUNT(AUTO) 4.47 MIL/uL (4.20-5.40); RED CELL DISTRIBUTION WIDTH 19.8 % (11.6-13.7); WHITE BLOOD COUNT (AUTO) 4.2 K/uL (4.8-10.8)
[2021-11-19 14:14] LABS: ALBUMIN 3.2 g/dL (3.4-5.0); ANION GAP 13.5 (8-16); CREATININE 0.9 mg/dL (0.6-1.3); POTASSIUM 3.5 mmol/L (3.5-5.1); TOTAL BILIRUBIN 0.2 mg/dL (0.0-1.0)
[2021-11-19 14:32] VITALS: BP 105/69
[2021-11-19] MEDS ORDERED: ACET-8386 PO (15:16)
[2021-11-19] MEDS ORDERED: IBUP-2213 PO (15:16)
[2021-11-19] MEDS ORDERED: OMEP40EC24 PO (15:16)
[2021-11-19] MEDS ORDERED: ONDA8TAB87 PO (15:16)
== END 2021-11-19 15:30 | disposition home or self-care (01) ==
LOC: MED 12:06
DX: R51.9 Headache, unspecified (principal); R07.9 Chest pain, unspecified; R10.13 Epigastric pain; J45.909 Unspecified asthma, uncomplicated; K21.9 Gastro-esophageal reflux disease without esophagitis; Z90.49 Acquired absence of other specified parts of digestive tract; Z79.899 Other long term (current) drug therapy
CPT/HCPCS: 36415; 80053; 81001; 81025; 83690; 85025; 87086; 93005; 99284

== ENCOUNTER 2022-03-05 00:35 | Emergency (ER) | payer BC ==
[~2022-03-05] VITALS: Ht 157.5 cm; Wt 99.8 kg
[~2022-03-05 00:35] MED LIST changes: +ACET-8386 PO; +IBUP-2213 PO; +OMEP40EC24 PO; +ONDA8TAB87 PO
[2022-03-05 00:48] VITALS: BP 126/67
--- NOTE | 2022-03-05 00:54 | NUR ---
Dr. Ruth examining patient.
[2022-03-05] MEDS ORDERED: DICYCLOMINE HCL LIQUID 20 MG, ALUMINUM HYD/MAG/SIMETHICONE 30 ML, LIDOCAINE VISCOUS 2% ... PO ONE ×3 (01:10)
[2022-03-05] MEDS ORDERED: DICYCLOMINE HCL LIQUID 10 MG/5 ML UDC ONE (01:19)
[2022-03-05] MEDS ORDERED: ALUMINUM HYD/MAG/SIMETHICONE 30 ML UDC ONE (01:19)
--- NOTE | 2022-03-05 01:21 | NUR ---
Blood for labwork drawn from LEFT ARM per MARINE SERVICES TECHNICIAN. Patient tolerated WELL.
[2022-03-05 01:35] LABS: BASOPHILS % (AUTO) 0.6 % (0.0-2.0); EOSINOPHILS # (AUTO) 0.2 K/uL (0-0.4); EOSINOPHILS % (AUTO) 3.2 % (0.0-4.0); HEMATOCRIT 37.2 % (36-48); HEMOGLOBIN 12.1 g/dL (12.0-16.0); LYMPHOCYTES # (AUTO) 2.5 K/uL (2.5-16.5); LYMPHOCYTES % (AUTO) 35.3 % (20.5-51.1); MEAN CORPUSCULAR HEMOGLOBIN 25 pg (27-31); MEAN CORPUSCULAR HGB CONC 33 g/dL (33-37); MEAN CORPUSCULAR VOLUME 77.2 fL (80-94); MONOCYTES # (AUTO) 0.6 K/uL (0.8-1.0); MONOCYTES % (AUTO) 8.5 % (1.7-9.3); NEUTROPHILS # (AUTO) 3.7 K/uL (1.8-7.7); NEUTROPHILS % (AUTO) 52.4 % (42.2-75.2); PLATELET COUNT (AUTO) 289 K/uL (140-450); RED BLOOD CELL COUNT(AUTO) 4.81 MIL/uL (4.20-5.40); RED CELL DISTRIBUTION WIDTH 17.6 % (11.6-13.7)
[2022-03-05 01:57] LABS: ALBUMIN 3.4 g/dL (3.4-5.0); ANION GAP 11.6 (8-16); CREATININE 0.9 mg/dL (0.6-1.3); POTASSIUM 3.6 mmol/L (3.5-5.1); TOTAL BILIRUBIN 0.3 mg/dL (0.0-1.0)
[2022-03-05] MEDS ORDERED: FAMO-90 PO (03:05)
[2022-03-05 03:10] VITALS: BP 127/67
== END 2022-03-05 03:10 | disposition home or self-care (01) ==
LOC: MED 00:35
DX: R10.13 Epigastric pain (principal); K21.9 Gastro-esophageal reflux disease without esophagitis; J45.909 Unspecified asthma, uncomplicated; Z72.89 Other problems related to lifestyle
CPT/HCPCS: 36415; 80053; 81002; 81025; 83690; 85025; 99283

== ENCOUNTER 2022-03-14 18:27 | Emergency (ER) | payer BC ==
[~2022-03-14] VITALS: Ht 165.1 cm; Wt 98.4 kg
[~2022-03-14 18:27] MED LIST changes: +FAMO-90 PO
[2022-03-14 18:30] VITALS: BP 128/70
--- NOTE | 2022-03-14 18:39 | NUR ---
PT AMB TO BED 5.
--- NOTE | 2022-03-14 18:39 | NUR ---
PT AMBULATED TO ER BED 5 WITH A STEADY GAIT.
--- NOTE | 2022-03-14 18:52 | NUR ---
31 Y/O FEMALE C/O EPIGASTRIC PAIN 02/03 DESCRIBES BURNING RADIATES TO STERNUM. STATES +N/V 5 TIMES X 3 DAYS. DENIES FEVER/CHILLS. PMH: GERD, ASTHMA NKA
[2022-03-14] MEDS ORDERED: FAMOTIDINE 20 MG TAB PO ONE (19:00)
[2022-03-14] MEDS ORDERED: DICYCLOMINE HCL LIQUID 20 MG, ALUMINUM HYD/MAG/SIMETHICONE 30 ML, LIDOCAINE VISCOUS 2% ... PO ONE ×3 (19:00)
[2022-03-14] MEDS ORDERED: ONDANSETRON 4 MG ODT PO ONE (19:00)
--- NOTE | 2022-03-14 19:11 | NUR ---
BUTTON TUFTING MACHINE OPERATOR AT PT BEDSIDE.
--- NOTE | 2022-03-14 19:15 | NUR ---
Blake valdovinos in [facility] - 03/14/22 at 1916 by [facility] GAVE REPORT TO CHARITO LEVI. TRANSFER OF CARE AT THIS TIME.
--- NOTE | 2022-03-14 19:16 | NUR ---
GAVE REPORT TO ANGELITA LEVI. TRANSFER OF CARE AT THIS TIME.
[2022-03-14 19:19] LABS: BASOPHILS % (AUTO) 0.4 % (0.0-2.0); EOSINOPHILS # (AUTO) 0.1 K/uL (0-0.4); HEMATOCRIT 36.9 % (36-48); HEMOGLOBIN 12.1 g/dL (12.0-16.0); LYMPHOCYTES # (AUTO) 1.7 K/uL (2.5-16.5); LYMPHOCYTES % (AUTO) 25.9 % (20.5-51.1); MEAN CORPUSCULAR HEMOGLOBIN 25 pg (27-31); MEAN CORPUSCULAR HGB CONC 33 g/dL (33-37); MEAN CORPUSCULAR VOLUME 77.8 fL (80-94); MONOCYTES # (AUTO) 0.6 K/uL (0.8-1.0); MONOCYTES % (AUTO) 8.8 % (1.7-9.3); NEUTROPHILS # (AUTO) 4.2 K/uL (1.8-7.7); NEUTROPHILS % (AUTO) 63.9 % (42.2-75.2); PLATELET COUNT (AUTO) 334 K/uL (140-450); RED BLOOD CELL COUNT(AUTO) 4.74 MIL/uL (4.20-5.40); WHITE BLOOD COUNT (AUTO) 6.7 K/uL (4.8-10.8)
[2022-03-14] MEDS ORDERED: ALUMINUM HYD/MAG/SIMETHICONE 30 ML UDC ONE (19:22)
[2022-03-14] MEDS ORDERED: DICYCLOMINE HCL LIQUID 10 MG/5 ML UDC ONE (19:23)
[2022-03-14] MEDS ORDERED: ALBUTEROL SULFATE/IPRATROPIU 3 ML SOL IH ONE (19:25)
--- NOTE | 2022-03-14 19:29 | NUR ---
PT AMBULATE TO BATHROOM
[2022-03-14 19:36] LABS: ALBUMIN 3.5 g/dL (3.4-5.0); ANION GAP 16.1 (8-16); CARBON DIOXIDE 23.2 mmol/L (21-32); CREATININE 0.9 mg/dL (0.6-1.3); POTASSIUM 3.3 mmol/L (3.5-5.1); TOTAL BILIRUBIN 0.4 mg/dL (0.0-1.0)
--- NOTE | 2022-03-14 19:55 | NUR ---
PT UNABLE TO URINATE . PT STATES BREATHING TREATMENT DIDINT HELP VERYU MUCH
[2022-03-14 21:43] LABS: APPEARANCE,URINE CLEAR (CLEAR); BILIRUBIN,URINE NEGATIVE (NEGATIVE); BLOOD, URINE 2+ (NEGATIVE); COLOR,URINE YELLOW (YELLOW); LEUKOCYTE ESTERASE ,URINE NEGATIVE (NEGATIVE); NITRITE, URINE NEGATIVE (NEGATIVE); UGLUCOSE NEGATIVE (NEGATIVE)
--- NOTE | 2022-03-14 22:00 | NUR ---
PT REPORTS SOME RELIEF WITH GI COCKTAIL. PAIN NOW 11/04
[2022-03-14 22:01] LABS: OTHER CASTS, URINE None Seen /LPF (None Seen); WBC,URINE 0-5 /HPF (0-5)
[2022-03-14] MEDS ORDERED: PRED20TA5 PO (22:29)
[2022-03-14] MEDS ORDERED: SUCR1TAB35 PO (22:29)
[2022-03-14] MEDS ORDERED: ALBU0.0912 INH (22:29)
[2022-03-14] MEDS ORDERED: OMEP40EC23 PO (22:29)
[2022-03-14 23:00] VITALS: BP 102/41
--- NOTE | 2022-03-14 23:00 | NUR ---
Patient discharged with v/s stable. Written and verbal after care instructions given and explained. Patient alert, oriented and verbalized understanding of instructions. Ambulatory with steady gait. All questions addressed prior to discharge. ID band removed. Patient advised to follow up with PMD. Rx of PROVENTIL, PRILOSEC, PREDNISONE, CARAFATE given. Opportunity to ask questions provided and answered.
== END 2022-03-14 20:03 | disposition home or self-care (01) ==
LOC: MED 18:27
DX: K21.9 Gastro-esophageal reflux disease without esophagitis (principal); E87.6 Hypokalemia; J45.909 Unspecified asthma, uncomplicated; Z90.49 Acquired absence of other specified parts of digestive tract
CPT/HCPCS: 36415; 80053; 81001; 81025; 83690; 85025; 94640; 99285; Q0162

== ENCOUNTER 2022-03-18 19:13 | Emergency (ER) | payer BC ==
[~2022-03-18] VITALS: Ht 157.5 cm; Wt 97.5 kg
[~2022-03-18 19:13] MED LIST changes: +ALBU0.0912 INH; +OMEP40EC23 PO; +PRED20TA5 PO; +SUCR1TAB35 PO
[2022-03-18 20:03] VITALS: BP 109/60
--- NOTE | 2022-03-18 20:03 | NUR ---
TO LOBBY A/W BED AMBULATORY
[2022-03-18] MEDS ORDERED: SUCRALFATE 1 GM TAB PO SCH (20:05)
[2022-03-18] MEDS ORDERED: ALUMINUM HYD/MAG/SIMETHICONE 30 ML UDC PO ONE (20:05)
--- NOTE | 2022-03-18 20:20 | NUR ---
31 Y/O F BIB SELF FOR EPIGASTRIC PAIN / CHEST PAIN X 1 DAY. PT HAS HAD REOCCURENT EPISODES FOR ALL WEEK. PT STATES IT FEELS LIKE CHEST PAIN. PT DENIES ANY HX OF HEART ATTACK. PT DENIES HEADACHE/ F/C/V/D. PT IS A&O X4 AND AMBULATORY
[2022-03-18 20:37] VITALS: BP 109/60
== END 2022-03-18 20:37 | disposition home or self-care (01) ==
LOC: MED 19:13
DX: K29.70 Gastritis, unspecified, without bleeding (principal)
CPT/HCPCS: 99283

== ENCOUNTER 2022-03-21 16:45 | Emergency (ER) | payer BC ==
[~2022-03-21] VITALS: Ht 157.5 cm; Wt 96.6 kg
[2022-03-21 17:07] VITALS: BP 103/62
[2022-03-21] MEDS ORDERED: PANTOPRAZOLE 40 MG INJ VIAL IVP ONE (19:20)
[2022-03-21] MEDS ORDERED: METOCLOPRAMIDE 10 MG/2 ML INJ VIAL IVP ONE (19:20)
[2022-03-21] MEDS ORDERED: NACL 0.9% 1,000 ML IV ONE (19:20)
[2022-03-21 20:18] LABS: ANION GAP 14.7 (8-16); CARBON DIOXIDE 23.6 mmol/L (21-32); CREATININE 0.8 mg/dL (0.6-1.3)
[2022-03-21] MEDS ORDERED: METOCLOPRAMIDE 10 MG/2 ML INJ VIAL ONE (22:28)
[2022-03-21] MEDS ORDERED: PANTOPRAZOLE 40 MG INJ VIAL ONE (22:28)
[2022-03-21 22:57] LABS: BASOPHILS % (AUTO) 0.6 % (0.0-2.0); EOSINOPHILS # (AUTO) 0.2 K/uL (0-0.4); EOSINOPHILS % (AUTO) 2.6 % (0.0-4.0); HEMATOCRIT 37.2 % (36-48); HEMOGLOBIN 12.3 g/dL (12.0-16.0); LYMPHOCYTES # (AUTO) 1.8 K/uL (2.5-16.5); LYMPHOCYTES % (AUTO) 29.7 % (20.5-51.1); MEAN CORPUSCULAR HEMOGLOBIN 26 pg (27-31); MEAN CORPUSCULAR HGB CONC 33 g/dL (33-37); MEAN CORPUSCULAR VOLUME 77.8 fL (80-94); MONOCYTES # (AUTO) 0.8 K/uL (0.8-1.0); MONOCYTES % (AUTO) 12.3 % (1.7-9.3); NEUTROPHILS # (AUTO) 3.4 K/uL (1.8-7.7); NEUTROPHILS % (AUTO) 54.8 % (42.2-75.2); PLATELET COUNT (AUTO) 307 K/uL (140-450); RED BLOOD CELL COUNT(AUTO) 4.78 MIL/uL (4.20-5.40); RED CELL DISTRIBUTION WIDTH 18.2 % (11.6-13.7); WHITE BLOOD COUNT (AUTO) 6.2 K/uL (4.8-10.8)
[2022-03-21] MEDS ORDERED: ESOM40EC PO (23:34)
[2022-03-22 00:53] VITALS: BP 106/66
== END 2022-03-22 01:05 | disposition home or self-care (01) ==
LOC: MED 16:45
DX: K21.9 Gastro-esophageal reflux disease without esophagitis (principal); J45.909 Unspecified asthma, uncomplicated; Z90.49 Acquired absence of other specified parts of digestive tract
CPT/HCPCS: 36415; 76705; 80048; 85025; 96361; 96374; 96375; 99285; C9113; J2765; Q0092

== ENCOUNTER 2022-03-28 15:05 | Emergency (ER) | payer BC ==
[~2022-03-28] VITALS: Ht 157.5 cm; Wt 95.7 kg
[~2022-03-28 15:05] MED LIST changes: +ESOM40EC PO
[2022-03-28 15:07] VITALS: BP 136/89
[2022-03-28] MEDS ORDERED: DICYCLOMINE HCL LIQUID 20 MG, ALUMINUM HYD/MAG/SIMETHICONE 30 ML, LIDOCAINE VISCOUS 2% ... PO ONE ×3 (15:35)
[2022-03-28] MEDS ORDERED: METOCLOPRAMIDE 10 MG TAB PO ONE (15:40)
[2022-03-28] MEDS ORDERED: ALUMINUM HYD/MAG/SIMETHICONE 30 ML UDC ONE (15:41)
[2022-03-28] MEDS ORDERED: DICYCLOMINE HCL LIQUID 10 MG/5 ML UDC ONE (15:41)
[2022-03-28] MEDS ORDERED: MAG10ORA PO (16:17)
== END 2022-03-28 16:25 | disposition home or self-care (01) ==
LOC: MED 15:05
DX: R10.13 Epigastric pain (principal); K21.9 Gastro-esophageal reflux disease without esophagitis; R03.0 Elevated blood-pressure reading, without diagnosis of hypertension; J45.909 Unspecified asthma, uncomplicated; Z79.899 Other long term (current) drug therapy
CPT/HCPCS: 99283; J8597

== ENCOUNTER 2022-04-02 21:14 | Emergency (ER) | payer BC ==
[~2022-04-02] VITALS: Ht 157.5 cm; Wt 95.3 kg
[~2022-04-02 21:14] MED LIST changes: +MAG10ORA PO
[2022-04-02 21:35] VITALS: BP 128/59
[2022-04-02] MEDS ORDERED: DICYCLOMINE HCL LIQUID 10 MG/5 ML UDC ONE (22:30)
[2022-04-02] MEDS ORDERED: ALUMINUM HYD/MAG/SIMETHICONE 30 ML UDC ONE (22:30)
[2022-04-02] MEDS: DICYCLOMINE HCL LIQUID 20 MG, ALUMINUM HYD/MAG/SIMETHICONE 30 ML, LIDOCAINE VISCOUS 2% ... PO ONE ×3 (22:31)
--- NOTE | 2022-04-02 22:55 | NUR ---
31/F PRESENTS TO ED WITH C/O ACID REFLUX AND SORE THROAT X1 HOUR, PATIENT REPORTS TAKING [place] WITH NO RELIEF. DENIES CP, DIFFICULTY BREATHING, COUGH.
--- NOTE | 2022-04-02 23:34 | NUR ---
PT MOVED TO BED 3
--- NOTE | 2022-04-02 23:53 | NUR ---
DR. GONZALEZ AT THE BS EVALUATING THE PT. PT INFORMED HIM HER PAIN IS A 7/10. PT STATED HER THROAT PAIN HAS INCREASED THROUGH OUT THE DAY.
[2022-04-03] MEDS ORDERED: KETOROLAC 30 MG/ML VIAL IM ONE
[2022-04-03] MEDS ORDERED: ACET-10509 PO (00:03)
[2022-04-03] MEDS ORDERED: LIDO100S PO (00:03)
--- NOTE | 2022-04-03 00:22 | NUR ---
STREP AND COVID SWABS SENT TO THE LAB. INFORMED THE PT THAT HE WOULD CALL HER FOR ANYTHING ABNORMAL. PT DISCHARGED HOME. PT TO F/U WITH PMD IN 1-2 DAYS. PT DX WITH SORE THROAT/PHARYNGITIS. DISCHARGE INSTRUCTED PROVIDED. PT INSTRUCTED TO RETURN BACK TO THE ER IF CONDITION WORSENS OR TO CALL 911 IN THE CASE OF AN EMERGENCY. PT STABLE AT TIME OF DISCHARGE. PT AMBULATED OUT WITH INSTRUCTIONS IN HAND.
[2022-04-03 00:26] VITALS: BP 112/74
== END 2022-04-03 00:17 | disposition home or self-care (01) ==
LOC: MED 21:14
DX: J02.9 Acute pharyngitis, unspecified (principal); Z20.822 Contact with and (suspected) exposure to COVID-19; J45.909 Unspecified asthma, uncomplicated; K21.9 Gastro-esophageal reflux disease without esophagitis; Z90.49 Acquired absence of other specified parts of digestive tract; Z79.899 Other long term (current) drug therapy
CPT/HCPCS: 87081; 99283

== ENCOUNTER 2022-05-03 16:13 | Emergency (ER) | payer BC ==
[~2022-05-03] VITALS: Ht 157.5 cm; Wt 88.9 kg
[~2022-05-03 16:13] MED LIST changes: +ACET-10509 PO; +LIDO100S PO
[2022-05-03 16:41] VITALS: BP 101/59
[2022-05-03] MEDS ORDERED: DICYCLOMINE HCL 20 MG PO ONE ×2 (18:15)
[2022-05-03] MEDS ORDERED: MAGNESIUM HYDROXIDE PO ONE ×2 (18:15)
[2022-05-03] MEDS ORDERED: SIMETHICONE PO ONE ×2 (18:15)
[2022-05-03] MEDS ORDERED: ALUMINUM HYDROXIDE PO ONE ×2 (18:15)
[2022-05-03] MEDS ORDERED: ALUMINUM HYD/MAG/SIMETHICONE 30 ML UDC ONE (18:18)
[2022-05-03] MEDS ORDERED: DICYCLOMINE HCL LIQUID 10 MG/5 ML UDC ONE (18:18)
--- NOTE | 2022-05-03 19:00 | NUR ---
left w/o dc instructions
== END 2022-05-03 19:00 | disposition home or self-care (01) ==
LOC: MED 16:13
DX: K21.9 Gastro-esophageal reflux disease without esophagitis (principal); J45.909 Unspecified asthma, uncomplicated
CPT/HCPCS: 99283

== ENCOUNTER 2022-05-03 22:56 | Emergency (ER) | payer BC ==
[~2022-05-03] VITALS: Ht 157.5 cm; Wt 88.9 kg
[2022-05-03 23:05] VITALS: BP 116/66
--- NOTE | 2022-05-03 23:17 | NUR ---
TP LOBBY FOLLOWING TRIAGE
[2022-05-04 02:03] VITALS: BP 101/73
== END 2022-05-04 03:55 | disposition home or self-care (01) ==
LOC: MED 22:56
DX: F41.9 Anxiety disorder, unspecified (principal); G25.71 Drug induced akathisia; J45.909 Unspecified asthma, uncomplicated; K21.9 Gastro-esophageal reflux disease without esophagitis
CPT/HCPCS: 99282; Q0163

== ENCOUNTER 2022-05-17 22:37 | Emergency (ER) | payer BC ==
[~2022-05-17] VITALS: Ht 157.5 cm; Wt 91.2 kg
[2022-05-17 22:40] VITALS: BP 112/74
--- NOTE | 2022-05-17 22:43 | NUR ---
to lobby a/w bed ambulatory
--- NOTE | 2022-05-17 23:00 | NUR ---
ASSUME CARE OF PT, PT C/O CP AT 1500 WHEN SHE WAS DRIVING ON THE FREEWAY, PT DENIES ANY CP OR SOB AT PRESENT TIME, PT STATES SHE HAS ANXIETY. PT WAS UNABLE TO SLEEP BECAUSE SHE WAS WORRIED ABOUT THE CP EARLIER IN THE DAY
--- NOTE | 2022-05-18 | NUR ---
PT DENIES CP OR SOB. PT STATES SHE FEELS GOOD. "I THINK IT WAS JUST MY ANXIETY"
[2022-05-18] MEDS ORDERED: ATA25 PO (00:28)
[2022-05-18 00:35] VITALS: BP 124/65
--- NOTE | 2022-05-18 00:35 | NUR ---
Patient discharged with v/s stable. Written and verbal after care instructions given and explained. Patient alert, oriented and verbalized understanding of instructions. Ambulatory with steady gait. All questions addressed prior to discharge. ID band removed. Patient advised to follow up with PMD. Rx SENT TO PHARMACY. Patient educated on indication of medication including possible reaction and side effects. Opportunity to ask questions provided and answered.
== END 2022-05-18 00:35 | disposition home or self-care (01) ==
LOC: MED 22:37
DX: R00.2 Palpitations (principal); F41.9 Anxiety disorder, unspecified; J45.909 Unspecified asthma, uncomplicated; K21.9 Gastro-esophageal reflux disease without esophagitis; Z79.899 Other long term (current) drug therapy; Z79.891 Long term (current) use of opiate analgesic
CPT/HCPCS: 93005; 99283

== ENCOUNTER 2022-10-03 11:08 | Emergency (ER) | payer BC ==
[~2022-10-03] VITALS: Ht 157.5 cm; Wt 81.6 kg
[~2022-10-03 11:08] MED LIST changes: -ACET-8386 PO; +ACET-8905 PO; +ATA25 PO
[2022-10-03 11:15] VITALS: BP 129/75
--- NOTE | 2022-10-03 11:22 | NUR ---
DAVIN. O2SAT 99% AT THIS TIME.
--- NOTE | 2022-10-03 11:28 | NUR ---
C/O SOB, STUFFY NOSE X 2 DAYS. O2 SAT 99% AT THIS TIME. PMH: ASTHMA, REFLUX, HYPERTHYROID
--- NOTE | 2022-10-03 12:44 | NUR ---
CALLED BY ANGELI TERRY, NO RESPONSE
--- NOTE | 2022-10-03 12:50 | NUR ---
CALLED BY ANGELI TERRY NO RESPONSE
[2022-10-03 19:34] VITALS: BP 129/75
== END 2022-10-03 14:06 | disposition left against medical advice (07) ==
LOC: MED 11:08
DX: R06.02 Shortness of breath (principal); J45.909 Unspecified asthma, uncomplicated; E05.90 Thyrotoxicosis, unspecified without thyrotoxic crisis or storm
CPT/HCPCS: 99281

== ENCOUNTER 2022-10-22 18:15 | Emergency (ER) | payer BC ==
[~2022-10-22] VITALS: Ht 160 cm; Wt 68.0 kg
[2022-10-22 18:21] VITALS: BP 100/59
--- NOTE | 2022-10-22 19:25 | NUR ---
PT TAKEN TO BED 12 FOR EKG.
--- NOTE | 2022-10-22 19:30 | NUR ---
PT BACK TO LOBBY.
[2022-10-22] MEDS ORDERED: ALBU0.0912 IH (19:47)
[2022-10-22 19:50] VITALS: BP 100/59
== END 2022-10-22 19:50 | disposition home or self-care (01) ==
LOC: MED 18:15
DX: R06.00 Dyspnea, unspecified (principal); J45.909 Unspecified asthma, uncomplicated; K21.9 Gastro-esophageal reflux disease without esophagitis; Z79.899 Other long term (current) drug therapy; Z79.1 Long term (current) use of non-steroidal anti-inflammatories (NSAID); Z79.891 Long term (current) use of opiate analgesic
CPT/HCPCS: 93005; 99283

== ENCOUNTER 2022-10-28 15:50 | Emergency (ER) | payer BC ==
[~2022-10-28] VITALS: Ht 157.5 cm; Wt 81.2 kg
[~2022-10-28 15:50] MED LIST changes: +ALBU0.0912 IH
[2022-10-28 16:33] VITALS: BP 114/67
[2022-10-28] MEDS ORDERED: ATA25 PO (18:18)
== END 2022-10-28 19:08 | disposition home or self-care (01) ==
LOC: MED 15:50
DX: F41.9 Anxiety disorder, unspecified (principal); J45.909 Unspecified asthma, uncomplicated; K21.9 Gastro-esophageal reflux disease without esophagitis; Z79.899 Other long term (current) drug therapy; Z79.1 Long term (current) use of non-steroidal anti-inflammatories (NSAID)
CPT/HCPCS: 71045; 99283

== ENCOUNTER 2022-11-14 11:46 | Emergency (ER) | payer BC ==
[~2022-11-14] VITALS: Ht 160 cm; Wt 78.5 kg
[~2022-11-14 11:46] MED LIST changes: +DOCU-299 PO
[2022-11-14 11:51] VITALS: BP 110/88
--- NOTE | 2022-11-14 12:08 | NUR ---
PATIENT AMBULATED FROM [facility] ONTO WHEELCHAIR AND ASSISTED TO LOBBY.
[2022-11-14 14:07] LABS: ALBUMIN 3.4 g/dL (3.4-5.0); ANION GAP 11.6 (8-16); ASPARTATE AMINOTRANSFERASE 38 U/L (15-37); CARBON DIOXIDE 26.4 mmol/L (21-32); CHLORIDE 105 mmol/L (98-107); CREATININE 0.8 mg/dL (0.6-1.3); GFR ARICAN-AMERICAN 106 mL/min (>90); GLUCOSE 94 mg/dL (74-106); SODIUM SERUM 139 mmol/L (136-145); TOTAL BILIRUBIN 0.2 mg/dL (0.0-1.0); UREA NITROGEN, BLOOD 6 mg/dL (7-18)
[2022-11-14 14:17] LABS: BASOPHILS % (AUTO) 0.7 % (0.0-2.0); EOSINOPHILS # (AUTO) 0.1 K/uL (0-0.4); EOSINOPHILS % (AUTO) 3.9 % (0.0-4.0); HEMATOCRIT 36.2 % (36-48); LYMPHOCYTES # (AUTO) 0.6 K/uL (2.5-16.5); LYMPHOCYTES % (AUTO) 20.9 % (20.5-51.1); MEAN CORPUSCULAR HEMOGLOBIN 25 pg (27-31); MEAN CORPUSCULAR HGB CONC 33 g/dL (33-37); MEAN CORPUSCULAR VOLUME 74.1 fL (80-94); MONOCYTES # (AUTO) 0.4 K/uL (0.8-1.0); MONOCYTES % (AUTO) 13.4 % (1.7-9.3); NEUTROPHILS # (AUTO) 1.8 K/uL (1.8-7.7); NEUTROPHILS % (AUTO) 61.1 % (42.2-75.2); PLATELET COUNT (AUTO) 282 K/uL (140-450); RED BLOOD CELL COUNT(AUTO) 4.88 MIL/uL (4.20-5.40); RED CELL DISTRIBUTION WIDTH 18.5 % (11.6-13.7); WHITE BLOOD COUNT (AUTO) 2.9 K/uL (4.8-10.8)
--- NOTE | 2022-11-14 15:07 | NUR ---
PATIENT TO CHAIR Petty
[2022-11-14] MEDS ORDERED: KETOROLAC 15 MG/ML VIAL IM ONE (15:30)
[2022-11-14] MEDS ORDERED: LORazepam 1 MG TAB PO ONE (15:30)
[2022-11-14] MEDS ORDERED: ATI.5 PO (15:39)
[2022-11-14 15:49] VITALS: BP 103/65
--- NOTE | 2022-11-14 15:53 | NUR ---
KENDAL (TRANSPORTATION) OUTSIDE ER LOBBY FOR [place] HOME.
--- NOTE | 2022-11-14 16:00 | NUR ---
Patient discharged with v/s stable. Written and verbal after care instructions given and explained for Nonspecific Chest Pain, Adult and Living With Anxiety, Adult. Patient alert, oriented and verbalized understanding of instructions. Ambulatory with steady gait. All questions addressed prior to discharge. ID band removed. Patient advised to follow up with PMD. Rx of Ativan given. Patient educated on indication of medication including possible reaction and side effects. Opportunity to ask questions provided and answered. Copy of RAD, blood work, off work note given to patient.
[2022-11-14 16:53] LABS: FREE T4 (FREE THYROXINE) 1.22 ng/dL (0.76-1.46); THYROID STIMULATING HORMONE 0.01 uIU/mL (0.34-3.74)
== END 2022-11-14 16:00 | disposition home or self-care (01) ==
LOC: MED 11:46
DX: R07.89 Other chest pain (principal); F41.9 Anxiety disorder, unspecified; K21.9 Gastro-esophageal reflux disease without esophagitis; J45.909 Unspecified asthma, uncomplicated; Z86.39 Personal history of other endocrine, nutritional and metabolic disease; Z90.49 Acquired absence of other specified parts of digestive tract; Z98.890 Other specified postprocedural states; Z79.899 Other long term (current) drug therapy; Z79.1 Long term (current) use of non-steroidal anti-inflammatories (NSAID)
CPT/HCPCS: 36415; 71045; 80053; 81025; 84439; 84443; 84484; 85025; 93005; 96372; 99285; J1885

== ENCOUNTER 2022-11-29 10:51 | Emergency (ER) | payer BC ==
[~2022-11-29] VITALS: Ht 165.1 cm; Wt 90.7 kg
[~2022-11-29 10:51] MED LIST changes: +ATI.5 PO
[2022-11-29 11:48] VITALS: BP 105/76
--- NOTE | 2022-11-29 12:03 | NUR ---
ABM. TO BED 2 W NO DIFFICULTY, NO ACUTE DISTRESS
[2022-11-29] MEDS ORDERED: diazePAM 5 MG TAB PO ONE (12:15)
[2022-11-29 13:32] LABS: BASOPHILS % (AUTO) 1.1 % (0.0-2.0); EOSINOPHILS # (AUTO) 0.1 K/uL (0-0.4); EOSINOPHILS % (AUTO) 3.4 % (0.0-4.0); HEMATOCRIT 36.3 % (36-48); LYMPHOCYTES # (AUTO) 0.9 K/uL (2.5-16.5); LYMPHOCYTES % (AUTO) 28.6 % (20.5-51.1); MEAN CORPUSCULAR HEMOGLOBIN 25 pg (27-31); MEAN CORPUSCULAR HGB CONC 33 g/dL (33-37); MEAN CORPUSCULAR VOLUME 75.2 fL (80-94); MONOCYTES # (AUTO) 0.4 K/uL (0.8-1.0); MONOCYTES % (AUTO) 12.3 % (1.7-9.3); NEUTROPHILS # (AUTO) 1.8 K/uL (1.8-7.7); NEUTROPHILS % (AUTO) 54.6 % (42.2-75.2); PLATELET COUNT (AUTO) 305 K/uL (140-450); RED BLOOD CELL COUNT(AUTO) 4.83 MIL/uL (4.20-5.40); RED CELL DISTRIBUTION WIDTH 19.9 % (11.6-13.7); WHITE BLOOD COUNT (AUTO) 3.3 K/uL (4.8-10.8)
--- NOTE | 2022-11-29 13:41 | NUR ---
LAB X-RAY COMPLETED PATIENT PREFERS WAITING AT THE LOBBY FOR LAB RESULT, DR GOMEZ MADE AWARE.
[2022-11-29 13:57] LABS: ANION GAP 6.8 (8-16); CREATININE 0.9 mg/dL (0.6-1.3); POTASSIUM 3.8 mmol/L (3.5-5.1)
== END 2022-11-29 14:51 | disposition home or self-care (01) ==
LOC: MED 10:51
DX: F41.9 Anxiety disorder, unspecified (principal); R07.9 Chest pain, unspecified; J45.909 Unspecified asthma, uncomplicated; E03.9 Hypothyroidism, unspecified; K21.9 Gastro-esophageal reflux disease without esophagitis; Z79.899 Other long term (current) drug therapy
CPT/HCPCS: 36415; 71045; 80048; 84484; 84703; 85025; 93005; 99285; Q0092

== ENCOUNTER 2022-12-05 19:04 | Emergency (ER) | payer BC ==
[~2022-12-05] VITALS: Ht 162.6 cm; Wt 76.2 kg
[2022-12-05 19:24] VITALS: BP 115/66
[2022-12-05] MEDS ORDERED: LORazepam 1 MG TAB PO ONE (19:50)
--- NOTE | 2022-12-05 20:20 | NUR ---
Pt refused ativan stating she felt dizzy after taking it previously, ERMD made aware.
[2022-12-05 20:57] VITALS: BP 115/66
--- NOTE | 2022-12-05 20:57 | NUR ---
Patient discharged with v/s stable. Written and verbal after care instructions given and explained. Patient verbalized understanding. Ambulatory with steady gait. Accompanied by family member. All questions addressed prior to discharge. Advised to follow up with PMD.
== END 2022-12-05 20:54 | disposition home or self-care (01) ==
LOC: MED 19:04
DX: R42 Dizziness and giddiness (principal); J45.909 Unspecified asthma, uncomplicated; K21.9 Gastro-esophageal reflux disease without esophagitis; E05.90 Thyrotoxicosis, unspecified without thyrotoxic crisis or storm; Z79.899 Other long term (current) drug therapy; Z79.1 Long term (current) use of non-steroidal anti-inflammatories (NSAID)
CPT/HCPCS: 81025; 93005; 99283

== ENCOUNTER 2023-02-11 15:44 | Emergency (ER) | payer BC ==
[~2023-02-11] VITALS: Ht 157.5 cm; Wt 74.4 kg
[2023-02-11 15:47] VITALS: BP 104/60; PULSE 66; RESP 18; TEMP 97.5; O2SAT 99
--- NOTE | 2023-02-11 16:05 | NUR ---
PT AMBULATED TO ED BED 11
--- NOTE | 2023-02-11 16:07 | NUR ---
PA MCCLELLAND IN TO SEE PT
--- NOTE | 2023-02-11 16:27 | NUR ---
X-Ray at bedside.
[2023-02-11 16:46] LABS: BASOPHILS % (AUTO) 1.6 % (0.0-2.0); EOSINOPHILS # (AUTO) 0.2 K/uL (0-0.4); EOSINOPHILS % (AUTO) 7.9 % (0.0-4.0); HEMOGLOBIN 10.6 g/dL (12.0-16.0); LYMPHOCYTES # (AUTO) 1.2 K/uL (2.5-16.5); LYMPHOCYTES % (AUTO) 45.7 % (20.5-51.1); MEAN CORPUSCULAR HEMOGLOBIN 26 pg (27-31); MEAN CORPUSCULAR HGB CONC 33 g/dL (33-37); MEAN CORPUSCULAR VOLUME 78.6 fL (80-94); MONOCYTES # (AUTO) 0.3 K/uL (0.8-1.0); NEUTROPHILS # (AUTO) 0.9 K/uL (1.8-7.7); NEUTROPHILS % (AUTO) 33.8 % (42.2-75.2); PLATELET COUNT (AUTO) 240 K/uL (140-450); RED BLOOD CELL COUNT(AUTO) 4.07 MIL/uL (4.20-5.40); RED CELL DISTRIBUTION WIDTH 17.6 % (11.6-13.7); WHITE BLOOD COUNT (AUTO) 2.6 K/uL (4.8-10.8)
[2023-02-11 17:10] LABS: ALBUMIN 3.4 g/dL (3.4-5.0); ANION GAP 12.7 (8-16); CARBON DIOXIDE 26.6 mmol/L (21-32); POTASSIUM 3.3 mmol/L (3.5-5.1); TOTAL BILIRUBIN 0.2 mg/dL (0.0-1.0)
[2023-02-11 17:24] LABS: BARBITURATE, URINE NEGATIVE ng/ml (NEG <=200); BENZODIAZEPINE, URINE NEGATIVE ng/mL (NEG <=200); CANNABINOID, URINE NEGATIVE ng/mL (NEG <=50); COCAINE, URINE NEGATIVE ng/mL (NEG <=300); OPIATE, URINE NEGATIVE ng/mL (NEG <=2000); PHENCYCLIDINE SCREEN,URINE NEGATIVE ng/mL (NEG <=25)
[2023-02-11] MEDS ORDERED: LORazepam 2 MG/ML VIAL IVP ONE (18:30)
--- NOTE | 2023-02-11 18:30 | NUR ---
pt refused medication at bedside. MD notified and new medication was ordered.
--- NOTE | 2023-02-11 18:50 | NUR ---
pt medicated per MD order
[2023-02-11] MEDS ORDERED: IBUPROFEN 600 MG TAB PO ONE (18:55)
[2023-02-11] MEDS ORDERED: IBUP-2213 PO (19:11)
--- NOTE | 2023-02-11 19:34 | NUR ---
IV removed, catheter intact and site benign. Applied folded 4x4 gauze and tape to stop bleeding.
--- NOTE | 2023-02-11 19:36 | NUR ---
pt pain medication reassessed early due to pt being discharged. medication was effective pain now 0/10
[2023-02-11 19:37] VITALS: BP 111/62; PULSE 63; RESP 20; TEMP 97.5; O2SAT 99
== END 2023-02-11 19:31 | disposition home or self-care (01) ==
LOC: MED 15:44
DX: E03.9 Hypothyroidism, unspecified (principal); D72.819 Decreased white blood cell count, unspecified; M54.50 Low back pain, unspecified; R00.2 Palpitations; J45.909 Unspecified asthma, uncomplicated; K21.9 Gastro-esophageal reflux disease without esophagitis; Z79.899 Other long term (current) drug therapy
CPT/HCPCS: 36415; 71045; 80053; 80305; 81025; 83690; 84436; 84443; 84484; 85025; 93005; 99285; Q0092; J2060

== ENCOUNTER 2023-02-21 10:55 | Emergency (ER) | payer BC ==
[~2023-02-21] VITALS: Ht 157.5 cm; Wt 74.4 kg
[~2023-02-21 10:55] MED LIST changes: +PROP10TA28 PO
[2023-02-21 11:21] VITALS: BP 100/74; PULSE 64; RESP 20; TEMP 97.6; O2SAT 100
--- NOTE | 2023-02-21 13:06 | NUR ---
CALLED AT [phone] AND [phone] BY PA, NO ANSWER
--- NOTE | 2023-02-21 13:07 | NUR ---
LEFT WITHOUT BEING SEEN
== END 2023-02-21 11:57 | disposition left against medical advice (07) ==
LOC: MED 10:55
DX: J02.9 Acute pharyngitis, unspecified (principal); R05.9 Cough, unspecified; Z53.21 Procedure and treatment not carried out due to patient leaving prior to being seen by health care provider
CPT/HCPCS: 99281

== ENCOUNTER 2023-05-02 10:57 | Emergency (ER) | payer BC ==
[~2023-05-02] VITALS: Ht 157.5 cm; Wt 74.4 kg
[2023-05-02 11:25] VITALS: BP 104/62; PULSE 78; RESP 18; TEMP 98.4; O2SAT 100
[2023-05-02] MEDS ORDERED: IBUP-2213 PO (12:48)
[2023-05-02] MEDS ORDERED: AMOX-1230 PO (12:48)
[2023-05-02] MEDS ORDERED: LIDOCAINE MPF 1% 10 MG/ML VIAL INJ ONE (12:50)
[2023-05-02] MEDS ORDERED: BENZOCAINE 20% 57 GM CAN MC ONE (13:50)
[2023-05-02 14:29] VITALS: BP 110/72; PULSE 83; RESP 18; TEMP 98.4; O2SAT 100
== END 2023-05-02 14:33 | disposition home or self-care (01) ==
LOC: MED 10:57
DX: K04.7 Periapical abscess without sinus (principal); J45.909 Unspecified asthma, uncomplicated; K21.9 Gastro-esophageal reflux disease without esophagitis; E03.9 Hypothyroidism, unspecified; Z91.040 Latex allergy status; Z91.010 Allergy to peanuts; Z79.899 Other long term (current) drug therapy
CPT/HCPCS: 10160; 99283

== ENCOUNTER 2023-05-20 18:22 | Emergency (ER) | payer BC ==
[~2023-05-20] VITALS: Ht 157.5 cm; Wt 72.6 kg
[~2023-05-20 18:22] MED LIST changes: +AMOX-1230 PO
[2023-05-20 18:58] VITALS: BP 106/60; PULSE 78; RESP 18; TEMP 97; O2SAT 98
[2023-05-20 20:23] LABS: BASOPHILS % (AUTO) 1.1 % (0.0-2.0); EOSINOPHILS # (AUTO) 0.1 K/uL (0-0.4); EOSINOPHILS % (AUTO) 3.9 % (0.0-4.0); HEMATOCRIT 34.4 % (36-48); HEMOGLOBIN 11.3 g/dL (12.0-16.0); LYMPHOCYTES # (AUTO) 1.6 K/uL (2.5-16.5); LYMPHOCYTES % (AUTO) 47.6 % (20.5-51.1); MEAN CORPUSCULAR HEMOGLOBIN 26 pg (27-31); MEAN CORPUSCULAR HGB CONC 33 g/dL (33-37); MEAN CORPUSCULAR VOLUME 80.3 fL (80-94); MONOCYTES # (AUTO) 0.3 K/uL (0.8-1.0); MONOCYTES % (AUTO) 8.3 % (1.7-9.3); NEUTROPHILS # (AUTO) 1.3 K/uL (1.8-7.7); NEUTROPHILS % (AUTO) 39.1 % (42.2-75.2); PLATELET COUNT (AUTO) 232 K/uL (140-450); RED BLOOD CELL COUNT(AUTO) 4.29 MIL/uL (4.20-5.40); RED CELL DISTRIBUTION WIDTH 16.6 % (11.6-13.7); WHITE BLOOD COUNT (AUTO) 3.4 K/uL (4.8-10.8)
[2023-05-20 20:49] LABS: ALBUMIN 3.5 g/dL (3.4-5.0); ANION GAP 11.4 (8-16); CALCIUM 8.5 mg/dL (8.5-10.1); CARBON DIOXIDE 26.3 mmol/L (21-32); FREE T4 (FREE THYROXINE) 1.02 ng/dL (0.76-1.46); MAGNESIUM 1.7 mg/dL (1.8-2.4); PHOSPHORUS 3.8 mg/dL (2.5-4.9); POTASSIUM 3.7 mmol/L (3.5-5.1); THYROID STIMULATING HORMONE 24.59 uIU/mL (0.34-3.74); TOTAL BILIRUBIN 0.2 mg/dL (0.0-1.0); TOTAL PROTEIN, SERUM 7.7 g/dL (6.4-8.2)
[2023-05-20 21:13] VITALS: BP 106/60; PULSE 78; RESP 18; TEMP 97; O2SAT 98
== END 2023-05-20 21:13 | disposition home or self-care (01) ==
LOC: MED 18:22
DX: R00.2 Palpitations (principal); D64.9 Anemia, unspecified; E83.42 Hypomagnesemia; J45.909 Unspecified asthma, uncomplicated; E03.9 Hypothyroidism, unspecified; K21.9 Gastro-esophageal reflux disease without esophagitis; Z88.8 Allergy status to other drugs, medicaments and biological substances; Z91.040 Latex allergy status; Z79.899 Other long term (current) drug therapy
CPT/HCPCS: 36415; 80053; 83735; 84100; 84439; 84443; 85025; 93005; 99284

== ENCOUNTER 2023-06-12 15:12 | Emergency (ER) | payer BC ==
[~2023-06-12] VITALS: Ht 157.5 cm; Wt 77.1 kg
[2023-06-12 15:35] VITALS: BP 104/61; PULSE 79; RESP 18; TEMP 97.8; O2SAT 100
== END 2023-06-12 19:56 | disposition left against medical advice (07) ==
LOC: MED 15:12
DX: R51.9 Headache, unspecified (principal); R42 Dizziness and giddiness; R00.2 Palpitations; J45.909 Unspecified asthma, uncomplicated; K21.9 Gastro-esophageal reflux disease without esophagitis; E03.9 Hypothyroidism, unspecified; Z79.899 Other long term (current) drug therapy; Z79.1 Long term (current) use of non-steroidal anti-inflammatories (NSAID); Z79.2 Long term (current) use of antibiotics; Z91.040 Latex allergy status; Z91.010 Allergy to peanuts
CPT/HCPCS: 71045; 99283

== ENCOUNTER 2023-06-16 08:54 | Emergency (ER) | payer BC ==
[~2023-06-16] VITALS: Ht 154.9 cm; Wt 73.2 kg
[2023-06-16 09:27] VITALS: BP 80/62; PULSE 80; RESP 15; TEMP 98.4; O2SAT 98
== END 2023-06-16 09:34 | disposition left against medical advice (07) ==
LOC: MED 08:54
DX: J45.909 Unspecified asthma, uncomplicated (principal); Z53.21 Procedure and treatment not carried out due to patient leaving prior to being seen by health care provider
CPT/HCPCS: 99281

== ENCOUNTER 2023-08-18 10:52 | Emergency (ER) | payer BC ==
[~2023-08-18] VITALS: Ht 165.1 cm; Wt 68.0 kg
[2023-08-18 11:02] VITALS: BP 126/74; PULSE 89; RESP 18; TEMP 98; O2SAT 98
[2023-08-18] MEDS ORDERED: CAPS1ADH5 TP (13:47)
[2023-08-18] MEDS ORDERED: NAPR-1704 PO (13:47)
[2023-08-18] MEDS ORDERED: CYCL-711 PO (13:47)
[2023-08-18 13:50] VITALS: BP 126/74; PULSE 89; RESP 18; TEMP 98; O2SAT 98
== END 2023-08-18 13:50 | disposition home or self-care (01) ==
LOC: MED 10:52
DX: S29.011A Strain of muscle and tendon of front wall of thorax, initial encounter (principal); K59.00 Constipation, unspecified; J45.909 Unspecified asthma, uncomplicated; K21.9 Gastro-esophageal reflux disease without esophagitis; E03.9 Hypothyroidism, unspecified; Z79.899 Other long term (current) drug therapy; Z79.1 Long term (current) use of non-steroidal anti-inflammatories (NSAID); Z79.2 Long term (current) use of antibiotics; Z91.040 Latex allergy status; Z91.010 Allergy to peanuts; X58.XXXA Exposure to other specified factors, initial encounter; Y92.89 Other specified places as the place of occurrence of the external cause; Y93.89 Activity, other specified; Y99.8 Other external cause status
CPT/HCPCS: 81002; 81025; 99283

== ENCOUNTER 2024-02-09 16:40 | Emergency (ER) | payer BC ==
[~2024-02-09] VITALS: Ht 157.5 cm; Wt 87.5 kg
[~2024-02-09 16:40] MED LIST changes: +CAPS1ADH5 TP; +CYCL-711 PO; +NAPR-1704 PO; +SUCR-3 PO; -SUCR1TAB35 PO
[2024-02-09 16:45] VITALS: BP 109/64; PULSE 87; RESP 17; TEMP 98.1; O2SAT 100
[2024-02-09 16:50] VITALS: O2SAT 98
[2024-02-09] MEDS: ALBUTEROL 0.083% 2.5 MG/3 ML NEBU INH ONE (19:00)
[2024-02-09] MEDS: predniSONE 20 MG TAB PO ONE (19:00)
[2024-02-09 19:54] LABS: BASOPHILS % (AUTO) 0.9 % (0.0-2.0); EOSINOPHILS # (AUTO) 0.1 K/uL (0-0.4); EOSINOPHILS % (AUTO) 3.1 % (0.0-4.0); HEMATOCRIT 28.8 % (36-48); HEMOGLOBIN 9.2 g/dL (12.0-16.0); LYMPHOCYTES # (AUTO) 1.2 K/uL (2.5-16.5); LYMPHOCYTES % (AUTO) 32.9 % (20.5-51.1); MEAN CORPUSCULAR HEMOGLOBIN 23 pg (27-31); MEAN CORPUSCULAR HGB CONC 32 g/dL (33-37); MEAN CORPUSCULAR VOLUME 70.2 fL (80-94); MONOCYTES # (AUTO) 0.3 K/uL (0.8-1.0); MONOCYTES % (AUTO) 8.6 % (1.7-9.3); NEUTROPHILS # (AUTO) 1.9 K/uL (1.8-7.7); NEUTROPHILS % (AUTO) 54.5 % (42.2-75.2); PLATELET COUNT (AUTO) 278 K/uL (140-450); RED BLOOD CELL COUNT(AUTO) 4.11 MIL/uL (4.20-5.40); RED CELL DISTRIBUTION WIDTH 18.9 % (11.6-13.7); WHITE BLOOD COUNT (AUTO) 3.5 K/uL (4.8-10.8)
[2024-02-09 20:12] LABS: APPEARANCE,URINE CLEAR (CLEAR); BILIRUBIN,URINE NEGATIVE (NEGATIVE); BLOOD, URINE NEGATIVE (NEGATIVE); COLOR,URINE YELLOW (YELLOW); LEUKOCYTE ESTERASE ,URINE NEGATIVE (NEGATIVE); NITRITE, URINE NEGATIVE (NEGATIVE); PROTEIN,URINE NEGATIVE (NEGATIVE); UGLUCOSE NEGATIVE (NEGATIVE); UROBILINOGEN,URINE 0.2 EU/dL (0.2 - 1)
[2024-02-09 20:16] LABS: ANION GAP 8.3 (8-16); CALCIUM 8.1 mg/dL (8.5-10.1); CARBON DIOXIDE 29.3 mmol/L (21-32); CREATININE 0.8 mg/dL (0.6-1.3); POTASSIUM 3.6 mmol/L (3.5-5.1)
[2024-02-09] MEDS ORDERED: FERR325E14 PO (20:27)
[2024-02-09 20:32] LABS: ALBUMIN 3.2 g/dL (3.4-5.0); THYROID STIMULATING HORMONE 4.55 uIU/mL (0.34-3.74); TOTAL BILIRUBIN 0.2 mg/dL (0.0-1.0); TOTAL PROTEIN, SERUM 7.3 g/dL (6.4-8.2)
[2024-02-09 21:14] VITALS: BP 99/70; PULSE 75; RESP 18; TEMP 98.4; O2SAT 100
== END 2024-02-09 21:14 | disposition home or self-care (01) ==
LOC: MED 16:40
DX: A01.00 Typhoid fever, unspecified (principal); R00.2 Palpitations; D64.9 Anemia, unspecified; J45.909 Unspecified asthma, uncomplicated; K21.9 Gastro-esophageal reflux disease without esophagitis; E03.9 Hypothyroidism, unspecified; Z79.1 Long term (current) use of non-steroidal anti-inflammatories (NSAID); Z79.2 Long term (current) use of antibiotics; Z79.899 Other long term (current) drug therapy; Z91.010 Allergy to peanuts; Z91.040 Latex allergy status
CPT/HCPCS: 36415; 71045; 80048; 80076; 81003; 84439; 84443; 85025; 93005; 99285; J7512; J7613

== ENCOUNTER 2024-05-22 07:31 | Emergency (ER) | payer BC ==
[~2024-05-22] VITALS: Ht 157.5 cm; Wt 94.0 kg
[~2024-05-22 07:31] MED LIST changes: -ACET-10509 PO; +ACET500T99 PO; +FERR325E14 PO
[2024-05-22 07:52] VITALS: BP 97/67; PULSE 72; RESP 18; TEMP 98.1; O2SAT 100
[2024-05-22 09:44] LABS: BASOPHILS % (AUTO) 1.2 % (0.0-2.0); EOSINOPHILS # (AUTO) 0.1 K/uL (0-0.4); EOSINOPHILS % (AUTO) 2.9 % (0.0-4.0); LYMPHOCYTES # (AUTO) 0.9 K/uL (2.5-16.5); LYMPHOCYTES % (AUTO) 31.6 % (20.5-51.1); MEAN CORPUSCULAR HEMOGLOBIN 27 pg (27-31); MEAN CORPUSCULAR HGB CONC 33 g/dL (33-37); MEAN CORPUSCULAR VOLUME 82.6 fL (80-94); MONOCYTES # (AUTO) 0.3 K/uL (0.8-1.0); MONOCYTES % (AUTO) 10.9 % (1.7-9.3); NEUTROPHILS # (AUTO) 1.5 K/uL (1.8-7.7); NEUTROPHILS % (AUTO) 53.4 % (42.2-75.2); PLATELET COUNT (AUTO) 220 K/uL (140-450); RED BLOOD CELL COUNT(AUTO) 4.48 MIL/uL (4.20-5.40); RED CELL DISTRIBUTION WIDTH 19.1 % (11.6-13.7); WHITE BLOOD COUNT (AUTO) 2.9 K/uL (4.8-10.8)
[2024-05-22 09:51] LABS: ANION GAP 12.3 (8-16); CALCIUM 8.2 mg/dL (8.5-10.1); CARBON DIOXIDE 24.8 mmol/L (21-32); CREATININE 0.9 mg/dL (0.6-1.3); POTASSIUM 4.1 mmol/L (3.5-5.1)
[2024-05-22 09:55] VITALS: TEMP 98
[2024-05-22] MEDS ORDERED: ATA25 PO (10:38)
[2024-05-22 10:45] VITALS: BP 99/66; PULSE 67; RESP 14; O2SAT 99
== END 2024-05-22 10:45 | disposition home or self-care (01) ==
LOC: MED 07:31
DX: F41.0 Panic disorder [episodic paroxysmal anxiety] (principal); R00.2 Palpitations; E03.9 Hypothyroidism, unspecified; R94.6 Abnormal results of thyroid function studies; J45.909 Unspecified asthma, uncomplicated; K21.9 Gastro-esophageal reflux disease without esophagitis; Z79.899 Other long term (current) drug therapy; Z91.010 Allergy to peanuts; Z91.040 Latex allergy status
CPT/HCPCS: 36415; 80048; 81025; 84443; 85025; 93005; 99284